=== PATIENT | male | born 1985 | race Caucasian/White ===

== ENCOUNTER 2018-09-18 12:22 | Emergency (ER) | payer MEDICAID, SELFPAY ==
[2018-09-18 12:23] VITALS: BP 164/98; PULSE 101; RESP 18; TEMP 37.4; O2SAT 98; BMI 29.0
[2018-09-18 12:25] VITALS: BP 164/98; PULSE 102; RESP 18; TEMP 37.4; O2SAT 99; BMI 29.0
[2018-09-18] MEDS: Neomycin Sulfate/Polymyxin/Hc Susp 10 ML Bottle 4 DRP OTIC (12:43)
[2018-09-18] MEDS: HYDROcodone Bitartrate/Apap 5/325 Tablet PO (12:43)
[2018-09-18] MEDS: Diphth,Pertuss(Acell),Tet Vac 0.5 ML Vial IM (12:43)
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
[2018-09-18 13:34] VITALS: PULSE 100; RESP 18
== END 2018-09-18 13:35 | disposition home or self-care (01) ==
LOC: ED 13:34
PROVIDERS: Emergency Provider Emergency Medicine
DX: S00.83XA Contusion of other part of head, initial encounter (principal); H60.93 Unspecified otitis externa, bilateral; F17.200 Nicotine dependence, unspecified, uncomplicated; Z23 Encounter for immunization; Y04.2XXA Assault by strike against or bumped into by another person, initial encounter; Y93.89 Activity, other specified; Y92.89 Other specified places as the place of occurrence of the external cause; Y99.8 Other external cause status
CPT/HCPCS: 70150; 90715; 99283

== ENCOUNTER 2018-12-03 07:04 | Emergency (ER) | payer MEDICAID, SELFPAY ==
[2018-12-03 04:40] VITALS: BP 169/92; PULSE 104; RESP 22; TEMP 37.4; O2SAT 97; BMI 32.8
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
[2018-12-03] MEDS: Ketorolac 30 MG/ML Syringe IV (05:07)
[2018-12-03 05:25] LABS: Absolute Lymphocyte Count 1.27 X10^3/ul (0.83-4.51); Absolute Neutrophil Count 3.7 X10^3/uL (2.0-7.7); Basophil# 0.08 X10^3/uL; Basophil% 1.2 % (0-1); Eosinophils% 4.5 % (0-5); Hematocrit 47.4 % (40-54); Hemoglobin 16.3 g/dl (13.0-16.5); Lymphocyte # 1.27 X10^3/ul (4.0); Lymphocyte % 19.2 % (19-41); Mean Corp Hgb Conc 34.4 g/gl (32-36); Mean Corpuscular Hgb 31.4 pg (27.0-32.0); Mean Corpuscular Volume 91.3 fL (80-94); Mean Platelet Vol. 9.6 fl (6.2-12.0); Monocyte# 1.24 X10^3/uL; Monocyte% 18.7 % (0-10); Neutrophil # 3.68 X10^3/uL (2.7-7.7); Neutrophil % 55.5 % (47-70); POSITIVE COUNT NO; POSITIVE DIFFERENTIAL NO; POSITIVE MORPHOLOGY NO; Platelet Count 189 K/mm3 (150-450); RBC Distribution Width SD 43.1 fl (35.1-43.9); Red Blood Count 5.19 M/mm3 (4.6-6.2); White Blood Count 6.6 K/mm3 (4.4-11.0)
[2018-12-03 05:38] LABS: Anion Gap 7 (5-15); BUN 11 mg/dL (7-18); BUN/Creat Ratio 9.7 RATIO (10-20); Calcium,Total 8.8 mg/dL (8.5-10.1); Chloride 102 mmol/L (98-107); Creatinine, Serum 1.13 mg/dL (0.70-1.30); EST Glomerular Filtration Rate 79 mL/min (>60); Est Glom Filt Rate - Afr Amer 96 mL/min (>60); Estimated Creatinine Clearance 105.08 ml/min; Glucose 114 mg/dL (74-106); Potassium 4.3 mmol/L (3.5-5.1); Sodium Level 138 mmol/L (136-145)
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
--- NOTE | 2018-12-03 06:27 | ED.RN ---
PT removed his own IV.
--- NOTE | 2018-12-03 06:32 | ED.VISSUMM ---
- ER Visit Summary Date of Service: 12/03/18 Chief Complaint: Right buttock abscess History of Present Illness: The patient is a 33 M with a history of long-standing abscess along the right buttock and toward the scrotum. He states this is been present for 2 to 3 years. However in the last couple of days this is worsened. He is developed a fever with temperature 101 and also reports nausea and vomiting for the last couple of days. He complains of lower abdominal pain. This has previously undergone incision and drainage. On one visit he underwent a CT which showed a perirectal abscess. Surgery was consulted who advised that it be drained in the emergency department and then follow-up with surgery for further surgical intervention. The patient states he never followed up with surgery. He presents from correction. Physical Examination: Temperature 99.4, heart rate 104, respiratory rate 22 Moist mucous membranes Heart regular tachycardia Lungs are clear Abdomen soft with some lower abdominal tenderness he has induration along the right buttock along the perineum extending towards the scrotum there is a 6 scar along the buttock with no drainage there is no open wound on the perineum near the base of the scrotum with spontaneous bloody drainage there is associated erythema consistent with some cellulitis. Test Results: CBC and BMP unremarkable. Emergency Department Course and Treatment: Patient was given IV Zosyn. He was given Toradol for pain. He went for a CT of the abdomen and pelvis with IV contrast to further evaluate this. Patient was released from correction. After this he pulled out his IV and eloped from the emergency department. I did not have a chance to discuss risks and benefits with him or have him sign out AGAINST MEDICAL ADVICE. Treatment Plan: [] Disposition: Eloped Impression: Perineum abscess This note was generated with [employer] dictation software. It may contain incorrect words, spelling, and punctuation that were not noted in review of the chart prior to signing ED Disposition - Plan for ED Patient: Referrals: Care Physician,No Primary [Primary Care Provider] -
== END 2018-12-03 08:00 | disposition left against medical advice (07) ==
PROVIDERS: Emergency Provider Emergency Medicine
DX: L02.215 Cutaneous abscess of perineum (principal)
CPT/HCPCS: 74177; 80048; 85025; 87070; 87205; 99282; J7050; Q9967; A4216

== ENCOUNTER 2019-01-30 06:30 | Emergency (ER) | payer MEDICAID, SELFPAY ==
[2019-01-30 06:31] VITALS: BP 142/82; PULSE 91; RESP 15; TEMP 36.4; O2SAT 97; BMI 33.2
--- NOTE | 2019-01-30 07:03 | ED.VIS.GEN ---
History of Present Illness Chief Complaint: Ear Problem Detail of Chief Complaint: With drainage Informant: Patient Onset: Weeks - Onset 1 week ago Context: Sudden Onset Timing: Continuous Quality: Pain Location: Left ear Current Severity: Mild Maximum Severity: Moderate Worsened by: Touch Relieved by: Nothing Associated Symptoms: Drainage from his left ear Narrative: Patient is a 33-year-old male presents with atraumatic left ear pain. He denies using Q-tip. He denies swimming. He complains of pain and drainage. He denies fever, chills or night sweats. He denies rhinorrhea, congestion or postnasal drainage. He denies sore throat. He denies headache. He denies rash. He denies neck pain or stiffness. He denies cough or shortness of breath. Prior similar symptoms: No Recent Illness/Hospitalization: No - Past Medical History (1) No significant past medical history Status: Acute Past Medical History - Allergies and Home Meds Allergies/Adverse Reactions: Allergies sulfamethoxazole [From Bactrim] Allergy (Verified 01/30/19 06:35) Hives trimethoprim [From Bactrim] Allergy (Verified 01/30/19 06:35) Hives Primary Care Physician: Care Physician,No Primary [Primary Care Provider] - Surgical History: no surgical history Lives: Alone Smoking Status: Current every day smoker Alcohol: Rare Drugs: None Review of Systems General: Denies: Chills, Fever, Malaise, Subjective, Sweats Eyes: Denies: Visual changes - bilaterally, Blurred Vision - bilaterally, Diplopia ENT: Reports: Left ear pain. Denies: Right ear pain, Rhinorrhea, Sore throat Cardiovascular: Denies: Chest pain, Palpitations Respiratory: Denies: Dyspnea, Cough, Dyspnea on exertion Gastrointestinal: Denies: Nausea, Vomiting Musculoskeletal: Denies: Myalgias, Arthralgias, Neck pain, Back pain Skin: Denies: Rash, Wounds Neurological: Denies: Headache, Weakness Allergy: Denies: Uticaria, Swelling of the mouth, Swelling of the tongue Physical Exam Vital Signs/Narrative: Vital Signs Temp Pulse Resp BP Pulse Ox 01/30/19 06:31 97.6 F L 91 15 142/82 H 97 Inital Vital Signs reviewed: Yes General: Well nourished, Well developed, No Acute Distress Head: Normocephalic, Atraumatic Eyes: Perrl, EOMI. Negative for: Pale conjunctiva, Scleral icterus ENT: Moist mucous membranes, No rhinorrhea. Negative for: TM's clear - Difficult seeing the left TM. There is pain to palpation of the tragus. There is discomfort plan left auricle. The left external auditory canal is narrowed with drainage noted. Neck: Supple, Nontender, No lymphadenopathy, No JVD Cardiovascular: Regular rate, Regular rhythm, No murmurs, Normal S1, Normal S2 Respiratory: No distress, CTA bilaterally, Chest nontender Skin: Normal color, No rash, No Trauma, - - No lesions noted external auditory canal to suggest [place] Vang syndrome.. Negative for: Cyanosis, Diaphoresis, Jaundice Neurological: Alert, Oriented x3, Cranial nerves II-XII grossly intact, Normal Strength, Normal Sensation Psychological: Normal affect, Normal Mood Diagnostic/Tx/Re-eval - Medical Decision Making Patient has history and physical exam consistent with otitis externa. A portion of the TM was visualized. It appears normal. This would suggest that the TM has not ruptured and there is no evidence of otitis media. Plan is to place a wick and have removed in 4 to 5 days. We will have Cortisporin otic suspension instilled in the left ear and bile will be dispensed. ED Disposition - Plan for ED Patient: Disposition: Home or Assisted Living Diagnosis: Acute otitis externa of left ear Instructions: EXTERNAL EAR INFECTION (Adult) Referrals: Care Physician,No Primary [Primary Care Provider] - Karishma Almanza DO [STAFF PHYSICIAN] - 3-5 Days Additional Instructions: Make an appointment see Dr. Mares in 4 to 5 days to have wick removed. Instill 4 to 5 drops of otic suspension left ear 4 times a day.
[2019-01-30] MEDS: Neomycin Sulfate/Polymyxin/Hc Susp 10 ML Bottle 4 DRP OTIC (07:32)
== END 2019-01-30 07:37 | disposition home or self-care (01) ==
LOC: ED 07:10
PROVIDERS: Emergency Provider Emergency Medicine
DX: H60.502 Unspecified acute noninfective otitis externa, left ear (principal); F17.200 Nicotine dependence, unspecified, uncomplicated
CPT/HCPCS: 99282

== ENCOUNTER 2019-05-25 18:41 | Emergency (ER) | payer SELFPAY ==
[2019-05-25 18:42] VITALS: BP 163/104; PULSE 106; RESP 18; TEMP 37.2; O2SAT 99; BMI 29.0
[2019-05-25 18:51] VITALS: TEMP 37.2
--- NOTE | 2019-05-25 19:16 | PCM.HP.STD ---
History of Present Illness The patient is a 34 year old M [] Past Medical History Allergies sulfamethoxazole [From Bactrim] Allergy (Verified 05/25/19 18:50) Hives trimethoprim [From Bactrim] Allergy (Verified 05/25/19 18:50) Hives Home Medications: Ambulatory Orders Medication Instructions Recorded NK 12/03/18 Surgical History: no surgical history Smoking Status: Current every day smoker - Physical Exam Vitals/I&O's: Vital Signs Temp Pulse Resp BP Pulse Ox 98.9 F 106 H 18 163/104 H 99 05/25/19 18:51 05/25/19 18:42 05/25/19 18:42 05/25/19 18:42 05/25/19 18:42 Weight: 99.79 kg Body Mass Index (BMI) 29.0 Assessment/Plan All Active Problems No significant past medical history (Acute) Abscess and cellulitis (Acute)
--- NOTE | 2019-05-25 19:57 | ED.DCSUM_ITS ---
- ER Visit Summary Date of Service: 05/25/19 Chief Complaint: Dental pain History of Present Illness: The patient is a 34 M presents with dental pain that has been getting worse over the past 2 days. Patient describes the pain as aching. Patient states the pain is over the right lower jaw. Patient does not have a dentist. Patient admits to subjective fevers. Patient also admits to swelling of his jaw and face. Patient also admits to hot and cold sensitivity. Physical Examination: Vital signs are stable. Patient is afebrile here. Patient is in no acute distress. Oral mucosa is pink and moist. There are dental caries noted over the right lower first and second molars. There is no abscess formation. There is some mild gingival edema. There is no fluctuance. There is no sublingual edema or erythema. Neck is supple. Trachea is midline to there is no JVD or lymphadenopathy. Emergency Department Course and Treatment: Patient was given a prescription for Pen-Vee K. Patient was instructed to continue Tylenol and ibuprofen as needed for pain. Patient was instructed to follow-up with a dentist in 3 to 5 days. Patient understood and was agreeable with the plan. All questions were answered. Disposition: Discharge home Impression: Infected dental caries This note was generated with [employer] dictation software. It may contain incorrect words, spelling, and punctuation that were not noted in review of the chart prior to signing ED Disposition - Plan for ED Patient: Disposition: Home or Assisted Living Diagnosis: Infected dental caries Instructions: Dental Cavity Prescriptions: Penicillin V Potassium 500 mg PO 4X/DAY #40 tab Prescription Printed Referrals: Care Physician,No Primary [Primary Care Provider] - Dentist,Your [STAFF PHYSICIAN] - As soon as possible
[2019-05-25 20:09] VITALS: TEMP 37.1
== END 2019-05-25 20:10 | disposition home or self-care (01) ==
PROVIDERS: Emergency Provider Emergency Medicine
DX: K02.9 Dental caries, unspecified (principal); K04.7 Periapical abscess without sinus; F12.90 Cannabis use, unspecified, uncomplicated; Z72.0 Tobacco use
CPT/HCPCS: 99282

== ENCOUNTER 2020-09-12 21:40 | Emergency (ER) | payer SELFPAY ==
[2020-09-12 21:41] VITALS: BP 122/73; PULSE 92; RESP 17; TEMP 37; O2SAT 96; BMI 31.6
--- NOTE | 2020-09-12 22:53 | ED.VIS.GEN ---
History of Present Illness Chief Complaint: Wound Informant: Patient Narrative: 35-year-old male presents with concern for multiple wounds covering his body. States that 2 weeks ago he was trimming bushes out in front of his home when he got small pinpricks on his skin. States that he scratched them open after they become little areas of infection. States that they have worsened since that time. Denies any fever or chills. Does not use IV drugs. Past Medical History - Allergies and Home Meds Allergies/Adverse Reactions: Allergies sulfamethoxazole [From Bactrim] Allergy (Verified 09/12/20 21:43) Hives trimethoprim [From Bactrim] Allergy (Verified 09/12/20 21:43) Hives Primary Care Physician: Care Physician,No Primary [Primary Care Provider] - Prior records reviewed: Yes Past Medical History: None Surgical History: no surgical history Lives: Alone Smoking Status: Current every day smoker Alcohol: None Drugs: None Review of Systems General: Denies: Chills, Fever, Sweats Eyes: Denies: Visual changes - bilaterally, Diplopia ENT: Denies: Rhinorrhea, Sore throat Cardiovascular: Denies: Chest pain, Palpitations Respiratory: Denies: Dyspnea, Cough, Dyspnea on exertion Gastrointestinal: Denies: Abdominal pain, Nausea, Vomiting, Diarrhea, Melena, Hematochezia Genitourinary: Denies: Dysuria, Hematuria, Frequency Musculoskeletal: Denies: Back pain, Extremity Pain Skin: Reports: Wounds. Denies: Rash Neurological: Denies: Headache, Weakness, Numbness Physical Exam Vital Signs/Narrative: Vital Signs Temp Pulse Resp BP Pulse Ox 09/12/20 21:41 98.6 F 92 17 122/73 H 96 Inital Vital Signs reviewed: Yes General: Well nourished, Well developed, No Acute Distress Head: Normocephalic, Atraumatic Eyes: Perrl, EOMI ENT: Moist mucous membranes, No rhinorrhea Neck: Supple, Nontender Cardiovascular: Regular rate, Regular rhythm, No murmurs Respiratory: No distress, CTA bilaterally, Chest nontender Abdomen: Soft, Nontender, Nondistended, Normal bowel sounds Back: Nontender, Normal Inspection Extremities: Nontender, No edema Skin: Normal color, - - Patient has evidence of multiple ulcerated lesions to his bilateral upper and lower extremities. Small areas of surrounding cellulitis. Neurological: Alert, Oriented x3, Cranial nerves II-XII grossly intact, Normal Strength, Normal Sensation Psychological: Normal affect, Normal Mood Diagnostic/Tx/Re-eval - Medical Decision Making Patient appears well and nontoxic. Vital signs within normal limits. Patient has these ulcerated wounds with some having surrounding cellulitis. There is some concern for Sporothrix schenckii infection. Patient will be covered with antifungal for multiple weeks as well as doxycycline. Patient will be given infectious disease to follow-up with as an outpatient. Stable at time of discharge. Impression: 1. Multiple skin lesions 2. Cellulitis ED Disposition - Plan for ED Patient: Disposition: Home or Assisted Living Instructions: ED Cellulitis, Wound Care Prescriptions: Doxycycline Hyclate 100 mg PO BID #14 capsule Prescription Printed Itraconazole 100 mg PO DAILY #60 capsule Prescription Printed Referrals: Adebayo Bae MD [STAFF PHYSICIAN] - 2 Days Lucien Rodgers MD [STAFF PHYSICIAN] - 5-7 Days
[2020-09-12] MEDS: Ceftriaxone 1 GM/50 ML BAG IV (23:29)
[2020-09-12 23:31] LABS: Absolute Neutrophil Count 5.2 X10^3/uL (2.0-7.7); Basophil# 0.07 X10^3/uL; Basophil% 0.8 % (0-1); Eosinophil# 0.24 X10^3/uL; Eosinophils% 2.8 % (0-5); Hematocrit 41.6 % (40-54); Hemoglobin 14.3 g/dL (13.0-16.5); Lymphocyte % 25.3 % (19-41); Mean Corp Hgb Conc 34.4 g/dL (32-36); Mean Corpuscular Hgb 31.9 pg (27.0-32.0); Mean Corpuscular Volume 92.9 fL (80-94); Mean Platelet Vol. 8.7 fl (6.2-12.0); Monocyte# 0.92 X10^3/uL; Monocyte% 10.6 % (0-10); NRBC Flagged by Analyzer 0 % (0-5); Neutrophil # 5.16 X10^3/uL (2.7-7.7); Neutrophil % 59.3 % (47-70); Platelet Count 277 K/mm3 (150-450); RBC Distribution Width CV 12.1 % (11.6-14.6); RBC Distribution Width SD 41.2 fl (35.1-43.9); Red Blood Count 4.48 M/mm3 (4.6-6.2); White Blood Count 8.7 K/mm3 (4.4-11.0)
[2020-09-12 23:40] LABS: Anion Gap 4 (5-15); BUN 15 mg/dL (7-18); BUN/Creat Ratio 15.1 RATIO (10-20); Calcium,Total 8.6 mg/dL (8.5-10.1); Chloride 105 mmol/L (98-107); Creatinine, Serum 0.99 mg/dL (0.70-1.30); EST Glomerular Filtration Rate 91 mL/min (>60); Est Glom Filt Rate - Afr Amer 110 mL/min (>60); Glucose 105 mg/dL (74-106); Potassium 4.1 mmol/L (3.5-5.1); Sodium Level 139 mmol/L (136-145)
[2020-09-13 00:20] VITALS: BP 121/74; PULSE 90; RESP 14; O2SAT 98
[2020-09-13 08:07] LABS: HIV - WCH Non-Reactive (Nonreactive); Syphilis Antibodies Non-reactive
== END 2020-09-13 00:23 | disposition home or self-care (01) ==
PROVIDERS: Emergency Provider Emergency Medicine
DX: L03.90 Cellulitis, unspecified (principal); F17.200 Nicotine dependence, unspecified, uncomplicated
CPT/HCPCS: 80048; 85025; 86703; 86780; 96365; 99285; J7050

== ENCOUNTER 2021-06-29 21:42 | Emergency (ER) | payer SELFPAY ==
[2021-06-29 21:43] VITALS: BP 155/92; PULSE 103; RESP 16; TEMP 36.2; O2SAT 97; BMI 37.3
[2021-06-29 21:44] VITALS: BP 155/92; PULSE 103; RESP 16; TEMP 36.2; O2SAT 97
--- NOTE | 2021-06-29 22:04 | EX.ED.DYSGE1 ---
HPI History of Present Illness Chief Complaint: Abscess Narrative Narrative: Patient is a 36-year-old male who states he used a [id number] about 5 to 7 days ago. He states he was allergic to it and got a lot of inflammation and redness in his axilla region. He states this is begun to down but he has noticed large swellings in both armpit area that are soft and painful in nature. He denies any drainage from the sites or history of immunosuppression fevers or chills. He states that he believes he has an abscess in each axilla and presents today because he feels they may need opened and drained. PFSH PFSH Home Medications clindamycin HCl [Cleocin HCl] 300 mg PO Q6H #40 cap 06/29/21 [Rx Last Taken Unknown] oxycodone-acetaminophen [Percocet] 1 tab PO Q6H PRN 3 Days #12 tab 06/29/21 [Rx Last Taken Unknown] Allergy/AdvReac Type Severity Reaction Status Date / Time sulfamethoxazole Allergy Hives Verified 09/12/20 21:43 [From Bactrim] trimethoprim [From Bactrim] Allergy Hives Verified 09/12/20 21:43 Social History Smoking Status: Current every day smoker tobacco type: cigarettes ROS ROS ED Constitutional Constitutional ED: Denies chills or fever(s) ENT ENT ED: Denies sore throat Cardiovascular Cardiovascular: Denies chest pain Respiratory/Chest Respiratory/Chest: Denies cough or dyspnea Gastrointestinal Gastrointestinal: Denies abdominal pain, diarrhea, nausea or vomiting Genitourinary Genitourinary ED: Denies dysuria Musculoskeletal Musculoskeletal: Denies myalgias Integumentary Reports abscess; Denies rash Neurologic Neurologic: Denies headache(s) Hematologic/Lymphatic Hematologic/Lymphatic: Denies easy bleeding or easy bruising EXAM Physical Exam Const Vital Signs: 06/29/21 21:43 06/29/21 21:44 Temperature 97.2 F L 97.2 F L Temperature Source Temporal Temporal Pulse Rate 103 H 103 H Respiratory Rate 16 16 Blood Pressure 155/92 H 155/92 H Blood Pressure Mean 113 113 Pulse Ox 97 97 Oxygen Delivery Method Room Air Room Air Positive well nourished and well developed General Appearance ED: well developed Eyes PERRL and EOMs intact bilaterally Neck supple Resp normal respiratory effort and clear to auscultation bilaterally Cardio regular rate and regular rhythm Extremity normal to inspection Neuro oriented x3 and CN's II-XII intact bilaterally Sensorium / Orientation: alert Motor Exam: strength 5/5 throughout Psych mental status grossly normal Skin Skin Narrative: Patient has blanchable erythema in the bilateral axillas consistent with his report of recent allergic reaction. However there is also a 2 x 4 area of induration in the left axilla as well as a 1 x 3 cm area of fluctuance in the right axilla consistent with abscess. There is no active drainage noted or lymphangitic streaking. MDM MDM MDM Narrative Medical decision making narrative: Patient presented to the ER afebrile. His exam is consistent with bilateral axilla abscesses. He does not have signs of systemic infection and he is not immunosuppressed so I felt no need for imaging or laboratory studies. Patient had the abscess is incised and drained as documented below. Following this we placed on antibiotics and pain medication and is otherwise safe for discharge Patient had both axilla cleaned with chlorhexidine. The axilla was numbed in local fashion using 2% lidocaine with epinephrine. A total of 16 mL was used for anesthesia with 8 mL injected into each axilla. A #11 blade was used to make a 1.5 cm incision over the area of fluctuance bilaterally. A large amount of purulent material was expressed. Loculations were dissected with a needle reynoso. The abscesses were copiously irrigated with normal saline. Then quarter-inch iodoform gauze was packed into both wounds. Patient tolerated procedure well without complication Discharge Plan Triage Chief Complaint: Abscess ED Provider: John Small Dx/Rx/DC Orders Clinical Impression: Axillary abscess Instructions: ED Abscess Incision And Drainage Prescriptions: New clindamycin HCl [Cleocin HCl] 300 mg capsule 300 mg PO Q6H Qty: 40 RF: 0 oxycodone-acetaminophen [Percocet] 5-325 mg tablet 1 tab PO Q6H PRN (Reason: pain) 3 Days Qty: 12 RF: 0 Primary Care Provider: Care Physician,No Primary Referrals: Troy Galindo MD [STAFF PHYSICIAN] - 1 Week if not improving Care Physician,No Primary [Primary Care Provider] - Activity Restrictions/Additional Instructions: Please remove your packing in 48 to 72 hours and return to the ER should you have any further concerns Disposition Disposition: Home, Self Care
[2021-06-29] MEDS: Ondansetron ODT 4 MG Tablet PO (22:27)
[2021-06-29] MEDS: Clindamycin HCl 150 MG Capsule 300 MG PO (22:27)
[2021-06-29] MEDS: Lidocaine 2% /Epi 1:100 (20ml) 20 ML VIAL INFILT (22:27)
[2021-06-29] MEDS: morphine 10 MG/ML Syringe 8 MG IM (22:28)
== END 2021-06-29 23:57 | disposition home or self-care (01) ==
PROVIDERS: Emergency Provider Emergency Medicine; Visit Provider Emergency Medicine
DX: L02.419 Cutaneous abscess of limb, unspecified (principal); F17.210 Nicotine dependence, cigarettes, uncomplicated
CPT/HCPCS: 10061; 96372; 99282

== ENCOUNTER 2021-08-14 08:19 | Inpatient (IN) | payer MEDICAID, SELFPAY ==
[2021-08-14] VITALS (55 sets, daily range): BP systolic 63–185; BP diastolic 39–128; PULSE 72–138; RESP 14–37; TEMP 35.9–39.9; O2SAT 43–97; BMI 37.0; BMI 36.9
[2021-08-14] MEDS: Etomidate 20 MG/10 ML Vial IV (08:26)
[2021-08-14] MEDS: Rocuronium Bromide 50 MG/5 ML Vial 40 MG IV (08:26)
--- NOTE | 2021-08-14 08:31 | EKG12_ITS ---
Test Reason : CODE Blood Pressure : / mmHG Vent. Rate : 111 BPM Atrial Rate : 111 BPM P-R Int : 190 ms QRS Dur : 084 ms QT Int : 316 ms P-R-T Axes : 074 054 029 degrees QTc Int : 429 ms Sinus tachycardia Septal infarct , age undetermined Abnormal ECG When compared with ECG of 02-DEC-2020 09:35, Vent. rate has increased BY 41 BPM Septal infarct is now Present Non-specific change in ST segment in Inferior leads Confirmed by SHITAL BREEN, CHANDLER ([id number]), editor publications PATY MONREAL ([id number]) on 08/18/2021 10:42:34 AM Referred By: MADELYN Confirmed By:CHANDLER ISAACS MD
--- NOTE | 2021-08-14 08:31 | RAD_ITS ---
STUDY: X-RAY CHEST REASON FOR EXAM: Male, 36 years old. Aspiration TECHNIQUE: Single AP portable view of the chest. COMPARISON: None. FINDINGS: An endotracheal tube is in situ. The tip is at 3.4 cm proximal to the lisbet. An orogastric tube is seen with tip below the left hemidiaphragm. EKG lines are seen. Bilateral airspace disease worse in the left lung. There is no demonstrated pleural abnormality. Normal size heart. Normal mediastinum and minal. Normal visualized pulmonary arteries. Normal visualized aortic arch and descending thoracic aorta. Normal visualized thoracic spine. Normal visualized ribs, clavicles, and shoulders. There is no demonstrated abnormality of the visualized soft tissue structures of the upper abdomen. RAD/Chest 1 View (Portable) IMPRESSION: The support tubes are in good position. Bilateral airspace disease worse in the left hemithorax. Electronically Signed: Gm Robbins MD at 9:06 EDT ,
--- NOTE | 2021-08-14 08:32 | RAD_ITS ---
STUDY: X-RAY - ABDOMEN/PELVIS REASON FOR EXAM: Male, 36 years old. og tube TECHNIQUE: Single AP view of the abdomen / pelvis. COMPARISON: None. FINDINGS: The tip of the orogastric tube is in the fundal portion of the stomach. Airspace disease seen in both lower lobes. RAD/Abdomen Single View (Portable) IMPRESSION: The tip of the orogastric tube is in the fundal portion of the stomach. Electronically Signed: Gm Robbins MD at 9:05 EDT ,
--- NOTE | 2021-08-14 08:33 | CT_ITS ---
STUDY: CT BRAIN WITHOUT CONTRAST REASON FOR EXAM: Male, 36 years old. Altered mental status. Overdose. RADIATION DOSAGE (If Supplied By Facility): CTDIvol = ( 34.83 ) mGy, DLP = ( 1340.67 ) mGycm TECHNIQUE: Transaxial CT imaging of the brain was performed without administration of intravenous contrast material. Individualized dose optimization techniques were used for this CT. COMPARISON: Comparison is made with prior study dated 10/19/2013. FINDINGS: Normal soft tissue structures. Normal calvarium. Lack of gyral markings of both cerebral hemispheres with evidence of diffuse bilateral decreased attenuation in the jones matter as well as white matter. There is decreased size of the lateral ventricles as well as the third ventricle. Findings are suggestive of a anoxic brain injury. Normal white matter tracts of the cerebral hemispheres. Normal basal ganglia and thalami. Normal brainstem. Normal cerebellum. There is no intracranial hemorrhage. There are no findings of an acute ischemic infarction. Normal visualized paranasal sinuses. CT/Brain/Head without Contrast IMPRESSION: Findings suggestive of anoxic brain injury. Electronically Signed: Gm Robbins MD at 10:53 EDT ,
[2021-08-14 08:57] LABS: Bacteria 0 SEEN /hpf (None Seen); Mucous, Urine 0 SEEN /hpf (<or=2+); Squamous Epithelial Cells - UA 0 SEEN /hpf (0-5); White Blood Cells 0 SEEN /hpf (0-5)
[2021-08-14 08:58] LABS: Color, Urine Yellow (Yellow); Glucose, Dipstick Normal (Normal); Ketone-Dipstick Negative (Negative); Leukocyte Esterase-Dipstick Negative /ul (Negative); Nitrite-Dipstick Negative (Negative); Occult Blood-Urine 250 /ul (Negative); Protein-Dipstick 100 mg/dl (Negative); Specific Gravity, Urine 1.015 (1.002-1.030); Urine Bilirubin Dipstick Negative (Negative); Urine Clarity Sl. Cloudy (Clear); Urine Urobilinogen Normal (Normal)
[2021-08-14 09:05] LABS: Red Blood Cells-Urine 5-10 SEEN /hpf (0-5)
[2021-08-14 09:12] LABS: Amphetamine Urine VISTA POSITIVE (<1000 ng/mL); Barbiturate Urine VISTA NEGATIVE (< 200 ng/mL); Benzodiazepine Urine VISTA NEGATIVE (< 200 ng/mL); Cocaine Urine VISTA NEGATIVE (< 300 ng/mL); Ecstacy Urine VISTA NEGATIVE (< 500 ng/mL); Methadone Urine VISTA NEGATIVE (< 300 ng/mL); PCP Urine VISTA NEGATIVE (< 25 ng/mL); THC Urine VISTA NEGATIVE (< 50 ng/mL); Vista UDS pH Range 6
[2021-08-14] MEDS: 0.9% Normal Saline 1,000 ML 999 ML IV (09:13)
[2021-08-14] MEDS: Propofol 10MG/Ml 1,000 MG/100 ML Bottle 7.4 MG CONT INF (09:20)
[2021-08-14 09:25] LABS: Absolute Lymphocyte Count 1.04 X10^3/uL (0.83-4.51); Absolute Neutrophil Count 8.5 X10^3/uL (2.0-7.7); Basophil# 0.11 X10^3/uL; Eosinophil# 0.03 X10^3/uL; Eosinophils% 0.3 % (0-5); Lymphocyte # 1.04 X10^3/ul (0.83-4.51); Lymphocyte % 9.7 % (19-41); Mean Corp Hgb Conc 33.9 g/dL (32-36); Mean Corpuscular Hgb 33.4 pg (27.0-32.0); Mean Corpuscular Volume 98.5 fL (80-94); Mean Platelet Vol. 8.7 fl (6.2-12.0); Monocyte# 0.73 X10^3/uL; Monocyte% 6.8 % (0-10); NRBC Flagged by Analyzer 0.2 % (0-5); Neutrophil % 79.3 % (47-70); Platelet Count 273 K/mm3 (150-450); RBC Distribution Width CV 12.1 % (11.6-14.6); RBC Distribution Width SD 43.8 fl (35.1-43.9); Red Blood Count 5.48 M/mm3 (4.6-6.2); White Blood Count 10.7 K/mm3 (4.4-11.0)
[2021-08-14 09:32] LABS: Differential Indicated SCAN CRITERIA MET; Hemoglobin 18.3 g/dL (13.0-16.5)
--- NOTE | 2021-08-14 09:49 | NURSING ---
dr and cps aware of o2 sat 79%
--- NOTE | 2021-08-14 09:53 | ED.RN ---
per dr owens, dr qureshi on way to see pt. wait on ct until seen by dr qureshi
[2021-08-14 09:56] LABS: Lactic Acid 3.9 mmol/L (0.4-1.9)
--- NOTE | 2021-08-14 10:20 | ED.RN ---
pt to ct via bed 1040 pt to icu
[2021-08-14 10:29] LABS: Base Excess -9 mmol/L (-2 to +2); Bicarbonate 22.7 mmol/L (22-26); PO2 66 mmHG (75-100); SITE R Radial; SO2 78 % (95-99); Total Carbon Dioxide 26 mmol/L; pH 6.99 (7.35-7.45)
--- NOTE | 2021-08-14 10:31 | CPS ---
Critical ABG Results handed to at [id number]. Deonte DIRECTOR DANCE
--- NOTE | 2021-08-14 10:31 | CM.ED ---
Social Work Emergency Department Responded to Ramila Bailey in the Emergency Department. Talked with staff and received update. Patient's mother Angela in the ED, and later joined by Angela's cousin. This telegraphic typewriter operator chief sat with Angela, provided emotional support, answered questions and updated Angela as able. Angela shared that patient has a history of heroin addiction and reportedly clean since October 2020. Angela reports she confronted the patient last evening about concerns for drug use and patient reportedly denied use. Angela reports patient's sister heard patient gurgling in the bedroom this morning, which is when the family found the patient unresponsive and called 911. Angela denies patient has any chronic health conditions. No current substance or mental health counseling or treatment that Angela is aware of. Angela denies awareness of patient having any type of advanced directives. Patient is single, not . Patient has 2 children, but both are minors. Let Angela know that any decision making that will be needed for health care will fall to the Angela and patient's father who also lives in the home. Handoff report to ICU delinquency prevention social worker. Social work remains available as needed. -SABI Michaels, REAL ESTATE ASSISTANT
--- NOTE | 2021-08-14 10:47 | EDS_ITS ---
HPI History of Present Illness Chief Complaint: Unresponsive Narrative Narrative: 36-year-old male presenting with altered mental status. Patient last seen well at about 1 to 1:30 AM. His mother reports that she was arguing with him saying that he was doing drugs. She states he was adamant he was not. He was acting strangely to her. She states that this morning he was found gurgling in his room. Unknown downtime. Patient received 2 of Narcan at home and 7 by EMS. There is been no return to baseline. Patient was frothing at the mouth and jaw clenched when he arrived. PFSH PFSH Home Medications clindamycin HCl [Cleocin HCl] 300 mg PO Q6H #40 cap 06/29/21 [Rx Last Taken Unknown] oxycodone-acetaminophen [Percocet] 1 tab PO Q6H PRN 3 Days #12 tab 06/29/21 [Rx Last Taken Unknown] Allergy/AdvReac Type Severity Reaction Status Date / Time sulfamethoxazole Allergy Hives Verified 09/12/20 21:43 [From Bactrim] trimethoprim [From Bactrim] Allergy Hives Verified 09/12/20 21:43 Social History Smoking Status: Current every day smoker tobacco type: cigarettes ROS ROS ED Review of Systems ROS Unobtainable: due to encephalopathy, due to endotracheal tube and due to mental condition EXAM Physical Exam Const Vital Signs: 08/14/21 08:22 08/14/21 08:36 08/14/21 08:44 Temperature 96.7 F L Temperature Source Temporal Pulse Rate 103 H 114 H Respiratory Rate 14 Respiratory Effort Mechanically Ventilated Blood Pressure 153/93 H Blood Pressure Mean 113 Pulse Ox 92 Oxygen Delivery Method Ambu-Bag Mechanical Ventilator Fraction of Inspired Oxygen (FIO2) 100 08/14/21 08:57 08/14/21 09:07 08/14/21 09:08 Temperature 96.7 F L 96.7 F L Temperature Source Temporal Temporal Pulse Rate 113 H Respiratory Rate 20 H Respiratory Effort Blood Pressure 153/93 H 185/113 H Blood Pressure Mean 137 Pulse Ox 96 Oxygen Delivery Method Ambu-Bag Mechanical Ventilator Mechanical Ventilator Fraction of Inspired Oxygen (FIO2) 08/14/21 09:33 Temperature Temperature Source Pulse Rate 116 H Respiratory Rate 24 H Respiratory Effort Blood Pressure 178/128 H Blood Pressure Mean 144 Pulse Ox 83 Oxygen Delivery Method Mechanical Ventilator Fraction of Inspired Oxygen (FIO2) Positive obese and unkempt General Appearance ED: unkempt; Negative for pallor Nutritional Appearance: obese HEENT HEENT Narrative: Frothing at the mouth. Negative for trauma Eyes Eyes Narrative: Eyes rolling backwards Chest Wall inspection of chest normal Resp clear to auscultation bilaterally Cardio Rate: tachycardic GI normal to inspection, nondistended, normoactive bowel sounds Neuro Sensorium / Orientation: stuporous Psych Appearance: unkempt Skin no rashes or lesions noted General Skin Exam: Negative for jaundice or pallor MDM MDM MDM Narrative Medical decision making narrative: 36-year-old male presenting with altered mental status. Initial concern is that the patient aspirated and has anoxic brain injury due to the level of downtime presumed. Narcan was not helping the patient. Determined immediately patient needed to be intubated. After receiving etomidate and rocuronium the patient began to vomit profusely. It is coming out of his nose and his oral airway. This lasted for about 45 sec. and he was suctioned. After this the patient lost his pulse. ACS was begun. After 1 round of chest compressions his pulse came back. ET tube was placed by ED physician on first pass using glide scope. Good color change and bilateral breath sounds post intubation. Patient was given vancomycin and Zosyn for broad-spectrum coverage. IV fluids were ordered at 30 cc/kg. Patient started on propofol drip. The patient was hypertensive and this actually did bring his blood pressure down. Last check it was 153/93. Lopez catheter was placed. Patient pancultured. Urinalysis negative for infection. His CBC showed no leukocytosis. Urine drug screen positive for amphetamines. Lactic acid 3.9. Chest x-ray my interpretation is bilateral pneumonia and good placement of ET tube. Radiologist does agree. KUB states good placement of the OG tube. The radiologist does also agree with this. Patient's blood gas was concerning as his pH is 6.9, CO2 95 PO2 [address]iscuss[address] with Dr. Farfan and came to the evaluate patient at bedside. Adjustments to the ventilator performed and he is now satting well at about 94%. He was taken over to CT for CT of the brain, and taken upstairs. The rest of his blood work is currently pending. Impression: 1. Cardiopulmonary arrest 2. drug overdose 3. Aspiration pneumonia 4. Altered mental status 5. Lactic acidosis Lab Data Attestation: I reviewed the patient's lab results. Labs: Laboratory Results - last 24 hr 08/14/21 08/14/21 08/14/21 08:50 08:50 09:15 WBC 10.7 RBC 5.48 Hgb 18.3 H* Hct 54.0 MCV 98.5 H MCH 33.4 H MCHC 33.9 RDW Std Deviation 43.8 RDW Coeff of Alphonse 12.1 Plt Count 273 MPV 8.7 Immature Gran % (Auto) 2.900 H Neut % (Auto) 79.3 H Lymph % (Auto) 9.7 L [place] % (Auto) 6.8 Eos % (Auto) 0.3 Baso % (Auto) 1.0 Absolute Neuts (auto) 8.5 H Absolute Lymphs (auto) 1.04 Nucleated RBC % 0.2 Differential Comment COMMENT Diff Path Review May foll Sodium Potassium Chloride Carbon Dioxide Anion Gap BUN Creatinine Estim Creat Clear Calc Est GFR (MDRD) Af Amer Est GFR (MDRD) Non-Af BUN/Creatinine Ratio Glucose Lactic Acid Calcium Total Bilirubin AST ALT Alkaline Phosphatase Total Creatine Kinase Troponin I High Sens Total Protein Albumin Globulin Albumin/Globulin Ratio Urine Color Yellow Urine Clarity Sl. Cloudy Urine pH 6.0 Ur Specific [place] 1.015 Urine Protein 100 H Urine Glucose (UA) Normal Urine Ketones Negative Urine Occult Blood 250 H Urine Nitrite Negative Urine Bilirubin Negative Urine Urobilinogen Normal Ur Leukocyte Esterase Negative Urine RBC 5-10 SEEN Urine WBC 0 SEEN Ur Squamous Epith Cells 0 SEEN Urine Bacteria 0 SEEN Urine Mucus 0 SEEN Urine Opiates Screen NEGATIVE Urine Methadone Screen NEGATIVE Ur Barbiturates Screen NEGATIVE Ur Phencyclidine Scrn NEGATIVE Ur Amphetamines Screen POSITIVE H MDMA (Ecstasy) Screen NEGATIVE U Benzodiazepines Scrn NEGATIVE Urine Cocaine Screen NEGATIVE U Cannabinoids Screen NEGATIVE Ur Drug Screen Comment 08/14/21 08/14/21 08/14/21 09:15 09:15 09:15 WBC RBC Hgb Hct MCV MCH MCHC RDW Std Deviation RDW Coeff of Alphonse Plt Count MPV Immature Gran % (Auto) Neut % (Auto) Lymph % (Auto) [place] % (Auto) Eos % (Auto) Baso % (Auto) Absolute Neuts (auto) Absolute Lymphs (auto) Nucleated RBC % Differential Comment Diff Path Review Sodium Cancelled Potassium Cancelled Chloride Cancelled Carbon Dioxide Cancelled Anion Gap Cancelled BUN Cancelled Creatinine Cancelled Estim Creat Clear Calc Cancelled Est GFR (MDRD) Af Amer Cancelled Est GFR (MDRD) Non-Af Cancelled BUN/Creatinine Ratio Cancelled Glucose Cancelled Lactic Acid 3.9 H* Calcium Cancelled Total Bilirubin Cancelled AST Cancelled ALT Cancelled Alkaline Phosphatase Cancelled Total Creatine Kinase Cancelled Troponin I High Sens Cancelled Total Protein Cancelled Albumin Cancelled Globulin Cancelled Albumin/Globulin Ratio Cancelled Urine Color Urine Clarity Urine pH Ur Specific [place] Urine Protein Urine Glucose (UA) Urine Ketones Urine Occult Blood Urine Nitrite Urine Bilirubin Urine Urobilinogen Ur Leukocyte Esterase Urine RBC Urine WBC Ur Squamous Epith Cells Urine Bacteria Urine Mucus Urine Opiates Screen Urine Methadone Screen Ur Barbiturates Screen Ur Phencyclidine Scrn Ur Amphetamines Screen MDMA (Ecstasy) Screen U Benzodiazepines Scrn Urine Cocaine Screen U Cannabinoids Screen Ur Drug Screen Comment ABG Data ABG results: ABG 08/14/21 09:17 Specimen Type ART Sample Site R Radial pH 6.99 L* Bicarbonate Actual 22.7 Total CO2 26 Base Excess -9 L O2 Saturation 78 L ABG pCO2 95.0 H* ABG pO2 66 L Radiography Diagnostic Testing: Clinical Impression(s) from Imaging Studies Chest X-Ray 08/14/21 08:31 IMPRESSION: The support tubes are in good position. Bilateral airspace disease worse in the left hemithorax. Electronically Signed: Gm Robbins MD at 9:06 EDT , KUB X-Ray 08/14/21 08:32 IMPRESSION: The tip of the orogastric tube is in the fundal portion of the stomach. Electronically Signed: Gm Robbins MD at 9:05 EDT , Discharge Plan Triage Chief Complaint: Unresponsive ED Provider: Erick Eddy Dx/Rx/DC Orders Primary Care Provider: Care Physician,No Primary
--- NOTE | 2021-08-14 11:07 | NURSING ---
on arrival to ICU, propofol running at 25 mcg/kg/min
--- NOTE | 2021-08-14 11:16 | ED.RN ---
[id number] report called to [facility]
[2021-08-14 11:31] LABS: Base Excess -4 mmol/L (-2 to +2); Bicarbonate 25.1 mmol/L (22-26); Blood Gas Specimen Type ART; FI02 100; Mode AC; O2 Delivery Device ET Tube; PEEP 12; PO2 55 mmHG (75-100); RR 14; SITE L Brach; SO2 75 % (95-99); Total Carbon Dioxide 28 mmol/L; Vt 450; pCO2 78.1 mmHg (35-45); pH 7.12 (7.35-7.45)
--- NOTE | 2021-08-14 11:40 | NURSING ---
Juana at bedside for central line placement
--- NOTE | 2021-08-14 12:00 | RAD_ITS ---
STUDY: X-RAY CHEST REASON FOR EXAM: Male, 36 years old. Line placement -- central line TECHNIQUE: Single AP portable view of the chest. COMPARISON: None. FINDINGS: An endotracheal tube is in situ. The tip of the tube is at 5.4 cm proximal to the lisbet. An orogastric tube is seen with the tip in the body of the stomach. A right-sided central catheter has been placed with the tip at the junction of the superior vena cava and right atrium. Diffuse airspace disease in the right lung. Increased markings in the left lung more prominent in the left lung apex. There is no demonstrated pleural abnormality. Normal size heart. Normal mediastinum and minal. Normal visualized pulmonary arteries. Normal visualized aortic arch and descending thoracic aorta. Normal visualized thoracic spine. Normal visualized ribs, clavicles, and shoulders. There is no demonstrated abnormality of the visualized soft tissue structures of the upper abdomen. RAD/Chest 1 View (Portable) IMPRESSION: Bilateral airspace disease worse in the right hemithorax. Electronically Signed: Gm Robbins MD at 12:26 EDT ,
--- NOTE | 2021-08-14 12:10 | EX.PCM.CONCC ---
Assessment & Plan Assessment/Plan (1) Acute respiratory failure: PLAN: RECOMMENDATIONS: 1. Continue assist control mode mechanical ventilation. Wean FiO2/PEEP for saturations greater than 90%. 2. Obtain repeat arterial blood gas in [address] central venous catheter. 4. Obtain comprehensive metabolic profile and recheck lactate. 5. Stop continuous IV fluids. 6. Start appropriate GI prophylaxis. 7. Send blood cultures. IMPRESSIONS: 1. Acute combined respiratory failure The patient presented to the hospital in an unresponsive/encephalopathic state and was emergently intubated in the emergency department. He did have a [place] aspiration event at that time and subsequently went on to develop significant bilateral infiltrates. The patient will be continued on assist control mode mechanical ventilation. Sputum culture will be obtained. He has been initiated on appropriate broad-spectrum antimicrobials. Plan to obtain follow-up arterial blood gas. Wean FiO2 and PEEP, as tolerated, to maintain saturations at or above 90%. It does appear that the precipitating etiology for his acute presentation was likely secondary to overdose. 2. Sepsis The patient presented with sepsis due to [place] aspiration pneumonia with acute sepsis related organ dysfunction as evidenced by hypotension, acute respiratory failure requiring invasive mechanical ventilatory support and lactic acidemia. Nevertheless, the patient's multisystem organ failure and lactic acidemia could also certainly be attributable to his overdose and prolonged downtime. However, the patient is now febrile with extensive bilateral infiltrates. Therefore, he will be continued on broad-spectrum antimicrobials and cultures will be obtained. If needed, vasopressor support will be initiated. The patient will not receive the full sepsis fluid protocol of 30 cc/kg, given his tenuous respiratory status and concern for worsening oxygenation. 3. Encephalopathy Clinical concern for anoxic brain injury. CT head did reveal findings concerning anoxic injury. Plan to continue current supportive measures for the next 48 to 72 hours. If the patient remains unchanged neurologically, will consider additional work-up including MRI brain. 4. Acute kidney injury/acute liver injury/hyperkalemia Likely secondary to acute presentation including respiratory failure due to overdose and ensuing sepsis. As noted above, plan to continue supportive measures. The patient's hyperkalemia will be medically managed. Continue to monitor liver and renal function. 5. History of heroin dependency Complicates care, management, recovery and prognosis. Continue supportive measures as noted above. Prognosis is overall quite poor. TIME: 41 minutes of critical care time, independent of procedures, was spent addressing the patient's acute combined respiratory failure, sepsis, encephalopathy, acute kidney injury, acute liver injury, hyperkalemia, review of all data and collaboration with the care team. HPI Consult Data Date of Consult: 08/14/21 HPI Narrative Reason for Consultation: Acute combined respiratory failure HPI Narrative: The patient is a 36-year-old male, with a history as outlined below, who presented to the emergency department via EMS on the morning of August 14 after being found unresponsive. The patient has an apparent history of heroin dependency, but has apparently been in remission for the last year. According to EMS documentation, approximately 6 to 7 hours had elapsed since the time the patient was last noted to have been seen normal. He did receive Narcan by EMS providers. I did speak with his mother at the bedside this afternoon, who indicated that the patient has been clean since October 2020 but apparently relapsed earlier this week. Immediately on arrival to the emergency department, the patient was intubated. However, per the ED provider, after receiving sedation and a paralytic, the patient began to vomit profusely and experienced a witnessed aspiration event. The patient was successfully intubated and started on broad-spectrum antimicrobials. On presentation to the emergency department, the patient was noted to be afebrile and hemodynamically stable. Initial laboratory evaluation revealed an elevated hemoglobin at 18.3 g/dL. Lactate was elevated at 3.9. Urine analysis was unremarkable. Toxicology screen was positive for amphetamines. Plain film chest x-ray revealed bilateral airspace disease. CT head revealed findings concerning for anoxic brain injury. [facility] [place] Medical History (Updated 08/14/21 @ 12:57 by Leny Giron) Substance abuse Home Medications clindamycin HCl [Cleocin HCl] 300 mg PO Q6H #40 cap 06/29/21 [Rx Last Taken Unknown] oxycodone-acetaminophen [Percocet] 1 tab PO Q6H PRN 3 Days #12 tab 06/29/21 [Rx Last Taken Unknown] Allergy/AdvReac Type Severity Reaction Status Date / Time sulfamethoxazole Allergy Hives Verified 09/12/20 21:43 [From Bactrim] trimethoprim [From Bactrim] Allergy Hives Verified 09/12/20 21:43 Social History Smoking Status: Current every day smoker tobacco type: cigarettes ROS Review of Systems ROS Unobtainable: due to endotracheal tube and due to mental condition Physical Exam Const General Appearance: ill appearing, intubated and patient mechanically ventilated Nutritional Appearance: obese HEENT normocephalic and head/scalp atraumatic Mouth: endotracheal tube in place and OG tube in place Eyes Eyes Narrative: Sluggish pupillary reflex. Neck supple General: trachea midline and CVC in place Chest inspection of chest normal Resp Effort and Inspection: tachypneic and labored Auscultation: rales and diminished lung sounds Cardio S1 normal heart sound and S2 normal heart sound Rate: tachycardic GI normal to inspection, nondistended, normoactive bowel sounds Extremity no clubbing, cyanosis or edema Skin no rashes or lesions noted Neuro Neuro Narrative: The patient is currently overbreathing the set rate on the ventilator but is not currently responsive to verbal or tactile stimulation. Lab / Micro Data Result Diagrams: 08/14/21 09:15 08/14/21 12:30 Labs: Laboratory Results - last 24 hr 08/14/21 08:50: Urine Opiates Screen NEGATIVE, Urine Methadone Screen NEGATIVE, Ur Barbiturates Screen NEGATIVE, Ur Phencyclidine Scrn NEGATIVE, Ur Amphetamines Screen POSITIVE H, MDMA (Ecstasy) Screen NEGATIVE, U Benzodiazepines Scrn NEGATIVE, Urine Cocaine Screen NEGATIVE, U Cannabinoids Screen NEGATIVE, Ur Drug Screen Comment 08/14/21 08:50: Urine Color Yellow, Urine Clarity Sl. Cloudy, Urine pH 6.0, Ur Specific [place] 1.015, Urine Protein 100 H, Urine Glucose (UA) Normal, Urine Ketones Negative, Urine Occult Blood 250 H, Urine Nitrite Negative, Urine Bilirubin Negative, Urine Urobilinogen Normal, Ur Leukocyte Esterase Negative, Urine RBC 5-10 SEEN, Urine WBC 0 SEEN, Ur Squamous Epith Cells 0 SEEN, Urine Bacteria 0 SEEN, Urine Mucus 0 SEEN 08/14/21 09:15: WBC 10.7, RBC 5.48, Hgb 18.3 H*, Hct 54.0, MCV 98.5 H, MCH 33.4 H, MCHC 33.9, RDW Std Deviation 43.8, RDW Coeff of Alphonse 12.1, Plt Count 273, MPV 8.7, Immature Gran % (Auto) 2.900 H, Neut % (Auto) 79.3 H, Lymph % (Auto) 9.7 L, [place] % (Auto) 6.8, Eos % (Auto) 0.3, Baso % (Auto) 1.0, Absolute Neuts (auto) 8.5 H, Absolute Lymphs (auto) 1.04, Nucleated RBC % 0.2, Differential Comment COMMENT, Diff Path Review May foll 08/14/21 09:15: Sodium Cancelled, Potassium Cancelled, Chloride Cancelled, Carbon Dioxide Cancelled, Anion Gap Cancelled, BUN Cancelled, Creatinine Cancelled, Estim Creat Clear Calc Cancelled, Est GFR (MDRD) Af Amer Cancelled, Est GFR (MDRD) Non-Af Cancelled, BUN/Creatinine Ratio Cancelled, Glucose Cancelled, Calcium Cancelled, Total Bilirubin Cancelled, AST Cancelled, ALT Cancelled, Alkaline Phosphatase Cancelled, Troponin I High Sens Cancelled, Total Protein Cancelled, Albumin Cancelled, Globulin Cancelled, Albumin/Globulin Ratio Cancelled 08/14/21 09:15: Lactic Acid 3.9 H* 08/14/21 09:15: Total Creatine Kinase Cancelled ABG Data ABG results: ABG 08/14/21 08/14/21 09:17 11:25 Specimen Type ART ART Sample Site R Radial L Brach pH 6.99 L* 7.12 L* Bicarbonate Actual 22.7 25.1 Total CO2 26 28 Base Excess -9 L -4 L O2 Saturation 78 L 75 L O2 % 100 ABG pCO2 95.0 H* 78.1 H* ABG pO2 66 L 55 L Respiration Rate 14 O2 Delivery Device ET Tube Vent Mode AC Tidal Volume 450 POC PEEP 12 Crit Call To/Read Back Yes Blood Gas Notified Whom BROWN Radiology Impression Chest X-Ray 08/14/21 08:31 IMPRESSION: The support tubes are in good position. Bilateral airspace disease worse in the left hemithorax. Electronically Signed: Gm Robbins MD at 9:06 EDT , KUB X-Ray 08/14/21 08:32 IMPRESSION: The tip of the orogastric tube is in the fundal portion of the stomach. Electronically Signed: Gm Robbins MD at 9:05 EDT , Brain CT 08/14/21 08:33 IMPRESSION: Findings suggestive of anoxic brain injury. Electronically Signed: Gm Robbins MD at 10:53 EDT , Charges/Coding Procedures Hospitalists Procedures: [id number]
--- NOTE | 2021-08-14 12:26 | PCM.OP.BLANK ---
Operative Report Date of Procedure: 08/14/21 Central line placement procedure note Indication: IV access/hemodynamic instability/vasoactive medications Procedure: A time-out was completed to verify correct patient, indication, medication allergies, procedure, coagulation studies, informed consent signed, and equipment needed. The patient was placed in the supine position for a central line placement to the rt IJ vein. The patients rt neck was prepped using chlorhexidine and a full body sterile drape was applied. 1% lidocaine was used to anesthetize the surrounding skin. A 7fr 16 cm blue guard triple lumen catheter introduced into the internal jugular vein using the modified seldinger technique with the assistance of ultrasound. The catheter was threaded smoothly over the guidewire, the guidewire was removed easily, nonpulsatile blood returned. All ports were aspirated of air and flushed with sterile saline. The catheter was sutured in place and covered with an occlusive dressing impregnated with chlorhexidine. Post-procedure: The patient tolerated the procedure well. Vital signs remained stable. EBL 5cc. No complications. Chest X Ray ordered to confirm tip placement and the absence of pneumothorax. Procedures Hospitalists Procedures: [id number] Insert Non-tunnel CV Cath
[2021-08-14 12:58] LABS: International Normalized Ratio 1.3; Prothrombin Time (Protime)PT. 15.3 SECONDS (11.7-14.9)
[2021-08-14 12:59] LABS: Partial Thromboplast Time 37.1 Seconds (24.1-36.2)
--- NOTE | 2021-08-14 12:59 | NURSING ---
patient unable to answer admission questions due to intubation, unresponsive. Mother at bedside to answer questions.
[2021-08-14 13:04] LABS: ALB/GLOB Ratio 0.8 RATIO (0.9-2.4); AST(SGOT) 462 U/L (15-37); Alanine Aminotransfer ALT/SGPT 210 U/L (16-61); Albumin, Serum 3.3 g/dL (3.2-5.0); Alkaline Phosphatase 129 U/L (45-117); Anion Gap 5 (5-15); BUN 26 mg/dL (7-18); BUN/Creat Ratio 11.8 RATIO (10-20); Calcium,Total 8.4 mg/dL (8.5-10.1); Chloride 109 mmol/L (98-107); Creatinine, Serum 2.21 mg/dL (0.70-1.30); EST Glomerular Filtration Rate 36 mL/min (>60); Est Glom Filt Rate - Afr Amer 44 mL/min (>60); Estimated Creatinine Clearance 50.72 ml/min; Glucose 50 mg/dL (74-106); Potassium 6.3 mmol/L (3.5-5.1); Protein, Total 7.3 g/dL (6.4-8.2); Sodium Level 140 mmol/L (136-145)
[2021-08-14 13:20] LABS: Reflex Lactate? Y
--- NOTE | 2021-08-14 13:36 | NURSING ---
HR dropped on monitor to the 60s, this RN in room, carotid pulse palpable weak, Dr. Farfan called to floor, respiratory at bedside for ABG.
[2021-08-14 13:48] LABS: CPK Total, Creatine Kinase 6634 U/L (39-308); Troponin-I HS 336 pg/mL (3.0-78.0)
[2021-08-14] MEDS: Lactated Ringers 1,000 ML 999 ML IV (13:50)
[2021-08-14 14:06] LABS: Base Excess -5 mmol/L (-2 to +2); Bicarbonate 23.8 mmol/L (22-26); Blood Gas Specimen Type ART; FI02 100; Mode AC; O2 Delivery Device ET Tube; PEEP 12; PO2 31 mmHG (75-100); RR 18; SITE L Brach; SO2 41 % (95-99); Total Carbon Dioxide 26 mmol/L; Vt 500; pCO2 70.8 mmHg (35-45); pH 7.14 (7.35-7.45)
[2021-08-14] MEDS: Calcium Gluconate 1 GM/10 ML Vial IVP (14:13)
[2021-08-14] MEDS: Dextrose 10%-Water 250 ML 999 ML IV ×3 (14:13→18:43)
--- NOTE | 2021-08-14 14:13 | PCM.RX.CS ---
Consult Pharmacy has been consulted to manage selected antiobiotic: Vancomycin Type of Consult: New start Suspected Infection: Pneumonia Prior Doses of Antibiotics Received/Current Regimen: Received 1750mg iv x 1 in ER 08.14.21 @1737. Labs: Sodium 140 mmol/L (136-145) 08/14/21 12:30 Potassium 6.3 mmol/L (3.5-5.1) H* 08/14/21 12:30 Chloride 109 mmol/L (98-107) H 08/14/21 12:30 Carbon Dioxide 26.0 mmol/L (21.0-32.0) 08/14/21 12:30 Anion Gap 5 (5-15) 08/14/21 12:30 BUN 26 mg/dL (7-18) H 08/14/21 12:30 Creatinine 2.21 mg/dL (0.70-1.30) H 08/14/21 12:30 Est GFR (MDRD) Af Amer 44 mL/min (>60) L 08/14/21 12:30 Est GFR (MDRD) Non-Af 36 mL/min (>60) L 08/14/21 12:30 BUN/Creatinine Ratio 11.8 RATIO (10-20) 08/14/21 12:30 Glucose 50 mg/dL (74-106) L 08/14/21 12:30 Microbiology: Microbiology 08/14/21 12:00 Sputum, Induced/Lukens Gram Stain - Final Weight used for dosin.7 kg Estimated Creatinine Clearance: 51 ml/min Goal Trough: 15-20 mcg/mL Pharmacy Plan for Drug Dosing: Will begin 1250mg iv q12h per protocol. Trough level ordered for before 4th total dose. Pharmacy Service will continue to monitor and adjust dosing as required. Follow-Up Labs: Trough Vancomycin - 08.15.21 @2029
[2021-08-14] MEDS: Insulin Lispro 100 UNIT/ML INSULN.PEN 10 UNIT SC (14:14)
[2021-08-14] MEDS: Piperacil/Tazobactam 3.375 GM/50 ML ML IV ×2 (14:14→22:22)
--- NOTE | 2021-08-14 14:15 | RAD_ITS ---
STUDY: X-RAY CHEST REASON FOR EXAM: Male, 36 years old. ETT placement, hypoxia TECHNIQUE: Single AP portable view of the chest. COMPARISON: Comparison is made with prior study dated 08/14/2021 at 11:55 AM. FINDINGS: Endotracheal tube is seen with the tip at 4.2 cm proximal to the lisbet. An orogastric tube is seen with the tip below the left hemidiaphragm. A right-sided central catheter is seen with the tip at the junction of the superior vena cava and right atrium. Since prior study, there has been progressive bilateral airspace disease. Blunting of the right cosmetic angle. Findings just possible small left pleural effusion. Normal size heart. Normal mediastinum and minal. Normal visualized pulmonary arteries. Normal visualized aortic arch and descending thoracic aorta. Normal visualized thoracic spine. Normal visualized ribs, clavicles, and shoulders. There is no demonstrated abnormality of the visualized soft tissue structures of the upper abdomen. RAD/Chest 1 View (Portable) IMPRESSION: Progressive bilateral airspace disease as compared to prior study. Electronically Signed: Gm Robbins MD at 14:28 EDT ,
--- NOTE | 2021-08-14 14:30 | CHAPLAIN ---
Type of Pastoral Visit _x__ Initial Visit ___ Follow-up Visit ___ On-call Visit ___ General Patient Visit ___ Spiritual Assessment ___ Family Conference ___ Bereavement ___ Rapid Response ___ Code Blue ___ Other (describe below) Pastoral Care Referral From ___ Patient ___ Family _x__ Nurse _x__ Physician ___ Corn Sheller ___ Set Up Mechanic Crown Assembly Machine ___ Other (describe below) Sacrament/Intervention ___ Active listening ___ Anointing ___ Druze ___ Bereavement ___ Communion ___ Evette exploration ___ ___ Life review _x__ Prayer ___ Reconciliation ___ Sacrament of Sick _x__ Supportive presence ___ Wedding ___ Other (describe below) Pastoral Comments patient is intubated and unresponsive; family members have gathered at bedside including parents and a sister; other family may be coming as patient is critical condition; offer of presence, support, and prayer; family welcomes prayer and the support; stayed at bedside after medical team left for a few minutes; offer ongoing support as needed
--- NOTE | 2021-08-14 14:31 | CASEMGMT ---
Social Work Pt's sister, mother and father currently at patient's bedside. SW visited and provided support to family. No verbalized needs from family at this time. SW will remain available should needs arise. BASIA Guallpa
--- NOTE | 2021-08-14 16:02 | CHAPLAIN ---
Type of Pastoral Visit ___ Initial Visit _x__ Follow-up Visit ___ On-call Visit ___ General Patient Visit ___ Spiritual Assessment ___ Family Conference ___ Bereavement ___ Rapid Response ___ Code Blue ___ Other (describe below) Pastoral Care Referral From ___ Patient _x__ Family ___ Nurse ___ Physician ___ Principal Military Analyst ___ Calculus Teacher ___ Other (describe below) Sacrament/Intervention ___ Active listening ___ Anointing ___ Restorationism ___ Bereavement ___ Communion ___ Evette exploration ___ ___ Life review _x__ Prayer ___ Reconciliation ___ Sacrament of Sick _x__ Supportive presence ___ Wedding ___ Other (describe below) Pastoral Comments more family has gathered; met with another sister and juancarlos along with parents; family requests prayers again; supported them with presence and prayer;
[2021-08-14 16:43] LABS: Reflex Lactate? Y
--- NOTE | 2021-08-14 17:05 | HP.PCM.HOS_ITS ---
HPI - General General Date of Admission: 08/14/21 Date of Service: 08/14/21 Chief Complaint: Respiratory failure, encephalopathy, suspected drug overdose HPI Wm CREWS, is a 36 M who presents to the emergency room at [facility] after being found down at home, last known time he was well was 1 AM this morning. Patient was found unresponsive at home with snoring respirations, he was transported to the ER by squad for evaluation, he was given several doses of IV Narcan without an effect on his consciousness. An attempt was going to be made to intubate the patient for airway protection, before he was intubated in the ER however, the patient had a episode of emesis followed by an episode of a loss of pulse, CODE BLUE was called and ACLS was begun, after 1 round of chest compressions, patient got his pulse back and was ultimately intubated.. Labs were obtained in the emergency room, white blood cell count was 10.7, hemoglobin was 18.3, arterial blood gas was obtained after the patient was on t he ventilator, pH was 7.14, PCO2 was 70.8, PO2 was 31, this was on 100% oxygen. Chemistry profile was abnormal for a potassium of 6.3, BUN was 26, creatinine was 2.21. Glucose was 50. Total bilirubin was 1.3, AST was 462, ALT was 210, CPK was 6634, and troponin was 336. Tox screen was positive for amphetamines, negative for opiates and benzodiazepines. Chest x-ray showed bilateral diffuse infiltrates similar to the appearance of ARDS. Critical care was contacted and patient was admitted to ICU for further care. [facility] Medical History (Updated 08/14/21 @ 12:57 by Leny Giron) Substance abuse Home Medications clindamycin HCl [Cleocin HCl] 300 mg PO Q6H #40 cap 06/29/21 [Rx Last Taken Unknown] oxycodone-acetaminophen [Percocet] 1 tab PO Q6H PRN 3 Days #12 tab 06/29/21 [Rx Last Taken Unknown] Allergy/AdvReac Type Severity Reaction Status Date / Time sulfamethoxazole Allergy Hives Verified 09/12/20 21:43 [From Bactrim] trimethoprim [From Bactrim] Allergy Hives Verified 09/12/20 21:43 Social History Smoking Status: Current every day smoker tobacco type: cigarettes ROS ROS Narrative Review of systems was unobtainable due to the fact the patient was on the vent and comatose. Vital Signs Vital Signs Vital Signs: 08/14/21 08:22 08/14/21 08:36 08/14/21 08:44 Temperature 96.7 F L Temperature Source Temporal Pulse Rate 103 H 114 H Respiratory Rate 14 Respiratory Effort Mechanically Ventilated Respiratory Depth Respiratory Pattern Blood Pressure 153/93 H Blood Pressure [BP] Blood Pressure Mean 113 Blood Pressure Mean [BP] Blood Pressure Source Blood Pressure Source [BP] Blood Pressure Position Blood Pressure Position [BP] Blood Pressure Location Blood Pressure Location [BP] Pulse Ox 92 Oxygen Delivery Method Ambu-Bag Mechanical Ventilator Fraction of Inspired Oxygen (FIO2) 100 08/14/21 08:57 08/14/21 09:07 08/14/21 09:08 Temperature 96.7 F L 96.7 F L Temperature Source Temporal Temporal Pulse Rate 113 H Respiratory Rate 20 H Respiratory Effort Respiratory Depth Respiratory Pattern Blood Pressure 153/93 H 185/113 H Blood Pressure [BP] Blood Pressure Mean 137 Blood Pressure Mean [BP] Blood Pressure Source Blood Pressure Source [BP] Blood Pressure Position Blood Pressure Position [BP] Blood Pressure Location Blood Pressure Location [BP] Pulse Ox 96 Oxygen Delivery Method Ambu-Bag Mechanical Ventilator Mechanical Ventilator Fraction of Inspired Oxygen (FIO2) 08/14/21 09:33 08/14/21 09:48 08/14/21 09:49 Temperature Temperature Source Pulse Rate 116 H 113 H 115 H Respiratory Rate 24 H 28 H 28 H Respiratory Effort Respiratory Depth Respiratory Pattern Blood Pressure 178/128 H 170/100 H 142/86 H Blood Pressure [BP] Blood Pressure Mean 144 123 104 Blood Pressure Mean [BP] Blood Pressure Source Blood Pressure Source [BP] Blood Pressure Position Blood Pressure Position [BP] Blood Pressure Location Blood Pressure Location [BP] Pulse Ox 83 78 78 Oxygen Delivery Method Mechanical Ventilator Mechanical Ventilator Mechanical Ventilator Fraction of Inspired Oxygen (FIO2) 08/14/21 09:55 08/14/21 09:58 08/14/21 10:00 Temperature 96.6 F L 96.6 F L Temperature Source Core Core Pulse Rate 117 H 119 H Respiratory Rate 28 H 34 H Respiratory Effort Respiratory Depth Respiratory Pattern Blood Pressure 145/99 H 145/99 H Blood Pressure [BP] Blood Pressure Mean 114 114 Blood Pressure Mean [BP] Blood Pressure Source Blood Pressure Source [BP] Blood Pressure Position Blood Pressure Position [BP] Blood Pressure Location Blood Pressure Location [BP] Pulse Ox 95 86 94 Oxygen Delivery Method Mechanical Ventilator Mechanical Ventilator Fraction of Inspired Oxygen (FIO2) 08/14/21 10:58 08/14/21 11:00 08/14/21 11:02 Temperature 98.9 F Temperature Source Core Pulse Rate 126 H 123 H 123 H Respiratory Rate 33 H 34 H 34 H Respiratory Effort Mechanically Ventilated Respiratory Depth Shallow Respiratory Pattern Tachypnea Blood Pressure 110/65 Blood Pressure [BP] 110/65 Blood Pressure Mean 80 Blood Pressure Mean [BP] 80 Blood Pressure Source Monitor Blood Pressure Source [BP] Monitor Blood Pressure Position Semi-Fowlers Blood Pressure Position [BP] Semi-Fowlers Blood Pressure Location Left Arm Blood Pressure Location [BP] Left Arm Pulse Ox 94 96 96 Oxygen Delivery Method Mechanical Ventilator Mechanical Ventilator Mechanical Ventilator Fraction of Inspired Oxygen (FIO2) 100 100 100 08/14/21 11:20 08/14/21 11:21 08/14/21 11:30 Temperature 99.7 F H 99.7 F H 100.0 F H Temperature Source Core Core Core Pulse Rate 137 H 137 H 124 H Respiratory Rate 35 H 35 H 36 H Respiratory Effort Respiratory Depth Respiratory Pattern Blood Pressure 145/98 H 146/110 H Blood Pressure [BP] 145/98 H 146/110 H Blood Pressure Mean 113 122 Blood Pressure Mean [BP] 113 122 Blood Pressure Source Monitor Monitor Blood Pressure Source [BP] Monitor Monitor Blood Pressure Position Semi-Fowlers Semi-Fowlers Blood Pressure Position [BP] Semi-Fowlers Semi-Fowlers Blood Pressure Location Left Arm Left Arm Blood Pressure Location [BP] Left Arm Left Arm Pulse Ox 95 95 94 Oxygen Delivery Method Mechanical Ventilator Mechanical Ventilator Mechanical Ventilator Fraction of Inspired Oxygen (FIO2) 100 100 100 08/14/21 11:42 08/14/21 12:00 08/14/21 12:15 Temperature 101.2 F H 101.3 F H Temperature Source Core Core Pulse Rate 127 H 124 H 127 H Respiratory Rate 35 H 23 H 35 H Respiratory Effort Respiratory Depth Respiratory Pattern Blood Pressure 72/58 L Blood Pressure [BP] 74/56 L Blood Pressure Mean 62 Blood Pressure Mean [BP] 62 Blood Pressure Source Monitor Blood Pressure Source [BP] Monitor Blood Pressure Position Semi-Fowlers Blood Pressure Position [BP] Semi-Fowlers Blood Pressure Location Left Arm Blood Pressure Location [BP] Left Arm Pulse Ox 92 76 81 Oxygen Delivery Method Mechanical Ventilator Mechanical Ventilator Fraction of Inspired Oxygen (FIO2) 100 100 100 08/14/21 12:30 08/14/21 13:00 08/14/21 13:36 Temperature 101.6 F H 102.2 F H Temperature Source Core Core Pulse Rate 128 H 120 H 72 Respiratory Rate 31 H 33 H 32 H Respiratory Effort Respiratory Depth Respiratory Pattern Blood Pressure Blood Pressure [BP] 84/65 L 87/57 L 93/48 L Blood Pressure Mean Blood Pressure Mean [BP] 71 67 63 Blood Pressure Source Blood Pressure Source [BP] Monitor Monitor Monitor Blood Pressure Position Blood Pressure Position [BP] Semi-Fowlers Semi-Fowlers Semi-Fowlers Blood Pressure Location Blood Pressure Location [BP] Left Arm Left Arm Left Arm Pulse Ox 87 84 69 Oxygen Delivery Method Mechanical Ventilator Mechanical Ventilator Mechanical Ventilator Fraction of Inspired Oxygen (FIO2) 100 100 100 08/14/21 13:45 08/14/21 14:00 08/14/21 14:15 Temperature 103.1 F H Temperature Source Core Pulse Rate 93 113 H 113 H Respiratory Rate 28 H 28 H Respiratory Effort Respiratory Depth Respiratory Pattern Tachypnea Blood Pressure 105/42 L 80/45 L Blood Pressure [BP] 70/43 L Blood Pressure Mean 63 56 Blood Pressure Mean [BP] 52 Blood Pressure Source Monitor Blood Pressure Source [BP] Monitor Blood Pressure Position Semi-Fowlers Blood Pressure Position [BP] Semi-Fowlers Blood Pressure Location Left Arm Blood Pressure Location [BP] Left Arm Pulse Ox 43 92 Oxygen Delivery Method Mechanical Ventilator Fraction of Inspired Oxygen (FIO2) 100 100 08/14/21 14:30 08/14/21 14:45 08/14/21 15:00 Temperature 102.5 F H Temperature Source Core Pulse Rate 138 H Respiratory Rate 19 H Respiratory Effort Respiratory Depth Respiratory Pattern Blood Pressure 91/47 L 83/41 L 63/39 L Blood Pressure [BP] Blood Pressure Mean 61 55 47 Blood Pressure Mean [BP] Blood Pressure Source Blood Pressure Source [BP] Blood Pressure Position Blood Pressure Position [BP] Blood Pressure Location Blood Pressure Location [BP] Pulse Ox 87 Oxygen Delivery Method Mechanical Ventilator Fraction of Inspired Oxygen (FIO2) 100 08/14/21 15:14 08/14/21 15:15 08/14/21 15:30 Temperature Temperature Source Pulse Rate 135 H Respiratory Rate Respiratory Effort Respiratory Depth Respiratory Pattern Blood Pressure 63/41 L 95/49 L Blood Pressure [BP] Blood Pressure Mean 48 64 Blood Pressure Mean [BP] Blood Pressure Source Blood Pressure Source [BP] Blood Pressure Position Blood Pressure Position [BP] Blood Pressure Location Blood Pressure Location [BP] Pulse Ox Oxygen Delivery Method Fraction of Inspired Oxygen (FIO2) 08/14/21 15:45 08/14/21 16:00 08/14/21 16:12 Temperature 102.6 F H Temperature Source Core Pulse Rate 101 H 103 H Respiratory Rate 29 H 30 H Respiratory Effort Mechanically Ventilated Respiratory Depth Shallow Respiratory Pattern Tachypnea Blood Pressure 96/56 L 89/58 L Blood Pressure [BP] Blood Pressure Mean 69 68 Blood Pressure Mean [BP] Blood Pressure Source Monitor Blood Pressure Source [BP] Blood Pressure Position Semi-Fowlers Blood Pressure Position [BP] Blood Pressure Location Left Arm Blood Pressure Location [BP] Pulse Ox 89 91 Oxygen Delivery Method Mechanical Ventilator Fraction of Inspired Oxygen (FIO2) 100 100 08/14/21 16:15 08/14/21 16:45 08/14/21 17:00 Temperature 103.2 F H Temperature Source Core Pulse Rate 119 H Respiratory Rate 33 H Respiratory Effort Respiratory Depth Respiratory Pattern Blood Pressure 94/55 L 86/54 L 88/56 L Blood Pressure [BP] Blood Pressure Mean 68 64 66 Blood Pressure Mean [BP] Blood Pressure Source Monitor Blood Pressure Source [BP] Blood Pressure Position Semi-Fowlers Blood Pressure Position [BP] Blood Pressure Location Left Arm Blood Pressure Location [BP] Pulse Ox 74 Oxygen Delivery Method Mechanical Ventilator Fraction of Inspired Oxygen (FIO2) 100 Weight Weight: 123.7 kg Body Mass Index (BMI) 36.9 Physical Exam Const no apparent distress Constitutional Narrative: Patient was sedated and on the ventilator General Appearance: well kempt and well developed Orientation / Consciousness: awake, oriented to person, oriented to place and oriented to time HEENT normocephalic, head/scalp atraumatic and moist oral mucous membranes Eyes conjunctivae normal Neck nuchal rigidity, supple, no JVD and thyroid normal General: trachea midline Resp normal respiratory effort and clear to auscultation bilaterally Resp Narrative: Patient is sedated and on the ventilator with rapid shallow respirations Auscultation: Negative for rales, rhonchi or wheezes Cardio regular rate, regular rhythm, no murmurs, no rub and no gallops GI normal to inspection, nondistended, normoactive bowel sounds and soft to pa lpation Extremity no clubbing, cyanosis or edema Skin skin turgor normal and no mottling General Skin Exam: no breakdown Neuro no sensory deficits noted Neuro Narrative: Patient is sedated and on the ventilator Psych Psych Narrative: Patient is sedated and on the ventilator Results Lab / Micro Data Result Diagrams: 08/14/21 09:15 08/14/21 12:30 Labs: Laboratory Results - last 24 hr 08/14/21 08:50: Urine Opiates Screen NEGATIVE, Urine Methadone Screen NEGATIVE, Ur Barbiturates Screen NEGATIVE, Ur Phencyclidine Scrn NEGATIVE, Ur Amphetamines Screen POSITIVE H, MDMA (Ecstasy) Screen NEGATIVE, U Benzodiazepines Scrn NEGATIVE, Urine Cocaine Screen NEGATIVE, U Cannabinoids Screen NEGATIVE, Ur Drug Screen Comment 08/14/21 08:50: Urine Color Yellow, Urine Clarity Sl. Cloudy, Urine pH 6.0, Ur Specific [place] 1.015, Urine Protein 100 H, Urine Glucose (UA) Normal, Urine Ketones Negative, Urine Occult Blood 250 H, Urine Nitrite Negative, Urine Bilirubin Negative, Urine Urobilinogen Normal, Ur Leukocyte Esterase Negative, Urine RBC 5-10 SEEN, Urine WBC 0 SEEN, Ur Squamous Epith Cells 0 SEEN, Urine Bacteria 0 SEEN, Urine Mucus 0 SEEN 08/14/21 09:15: WBC 10.7, RBC 5.48, Hgb 18.3 H*, Hct 54.0, MCV 98.5 H, MCH 33.4 H, MCHC 33.9, RDW Std Deviation 43.8, RDW Coeff of Alphonse 12.1, Plt Count 273, MPV 8.7, Immature Gran % (Auto) 2.900 H, Neut % (Auto) 79.3 H, Lymph % (Auto) 9.7 L, Keith % (Auto) 6.8, Eos % (Auto) 0.3, Baso % (Auto) 1.0, Absolute Neuts (auto) 8.5 H, Absolute Lymphs (auto) 1.04, Nucleated RBC % 0.2, Differential Comment COMMENT, Diff Path Review September08/14/21 09:15: Sodium Cancelled, Potassium Cancelled, Chloride Cancelled, Carbon Dioxide Cancelled, Anion Gap Cancelled, BUN Cancelled, Creatinine Cancelled, Estim Creat Clear Calc Cancelled, Est GFR (MDRD) Af Amer Cancelled, Est GFR (MDRD) Non-Af Cancelled, BUN/Creatinine Ratio Cancelled, Glucose Cancelled, Calcium Cancelled, Total Bilirubin Cancelled, AST Cancelled, ALT Cancelled, Alkaline Phosphatase Cancelled, Troponin I High Sens Cancelled, Total Protein Cancelled, Albumin Cancelled, Globulin Cancelled, Albumin/Globulin Ratio Cancelled 08/14/21 09:15: Lactic Acid 3.9 H* 08/14/21 09:15: Total Creatine Kinase Cancelled 08/14/21 12:30: PT 15.3 H, INR 1.3, APTT 37.1 H 08/14/21 12:30: Total Creatine Kinase 6634 H, Troponin I High Sens 336 H* 08/14/21 12:30: Sodium 140, Potassium 6.3 H*, Chloride 109 H, Carbon Dioxide 26.0, Anion Gap 5, BUN 26 H, Creatinine 2.21 H, Estim Creat Clear Calc 50.72, Est GFR (MDRD) Af Amer 44 L, Est GFR (MDRD) Non-Af 36 L, BUN/Creatinine Ratio 11.8, Glucose 50 L, Calcium 8.4 L, Total Bilirubin 1.30 H, AST 462 H, ALT 210 H, Alkaline Phosphatase 129 H, Total Protein 7.3, Albumin 3.3, Globulin 4.0, Albumin/Globulin Ratio 0.8 L 08/14/21 12:30: Lactic Acid 2.0 08/14/21 14:25: MRSA (PCR) POSITIVE H Micro: Microbiology 08/14/21 12:00 Sputum, Induced/[place] Gram Stain - Final ABG Data ABG results: ABG 08/14/21 08/14/21 08/14/21 09:17 11:25 14:00 Specimen Type ART ART ART Sample Site R Radial L Brach L Brach pH 6.99 L* 7.12 L* 7.14 L* Bicarbonate Actual 22.7 25.1 23.8 Total CO2 26 28 26 Base Excess -9 L -4 L -5 L O2 Saturation 78 L 75 L 41 L O2 % 100 100 ABG pCO2 95.0 H* 78.1 H* 70.8 H* ABG pO2 66 L 55 L 31 L* Respiration Rate 14 18 O2 Delivery Device ET Tube ET Tube Vent Mode AC AC Tidal Volume 450 500 POC PEEP 12 12 Crit Call To/Read Back Yes Yes Blood Gas Notified Whom ADALGISA DIANA Radiology Impression Chest X-Ray 08/14/21 08:31 IMPRESSION: The support tubes are in good position. Bilateral airspace disease worse in the left hemithorax. Electronically Signed: Gm Robbins MD at 9:06 EDT , KUB X-Ray 08/14/21 08:32 IMPRESSION: The tip of the orogastric tube is in the fundal portion of the stomach. Electronically Signed: Gm Robbins MD at 9:05 EDT , Brain CT 08/14/21 08:33 IMPRESSION: Findings suggestive of anoxic brain injury. Electronically Signed: Gm Robbins MD at 10:53 EDT , Chest X-Ray 08/14/21 12:00 IMPRESSION: Bilateral airspace disease worse in the right hemithorax. Electronically Signed: Gm Robbins MD at 12:26 EDT , Chest X-Ray 08/14/21 14:15 IMPRESSION: Progressive bilateral airspace disease as compared to prior study. Electronically Signed: Gm Robbins MD at 14:28 EDT , Assessment & Plan Assessment/Plan (1) Acute respiratory failure: PLAN: 1. Acute combined respiratory failure secondary to suspected unintentional drug overdose-patient was admitted to ICU, critical care was consulted, prognosis remains extremely guarded at this point, I talked briefly with the patient's mother who states that the patient had a narcotic drug problem in the past but has been clean for quite some time. She said she did suspect that he had been using narcotics again but was not able to get him to admit this. The last time he was seen well was approximately 130 this morning, he was brought to the emergency room at approximately 9 AM this morning. #2 Cardiac arrest-patient had a short episode of cardiac arrest while in the ER, chest compressions were performed and he got return of pulse. #3 probable drug overdose-exact drug not known at this time, continue supportive care at this time #4 aspiration pneumonia/pneumonitis with probable ARDS-patient will be maintained on vancomycin and Zosyn, pulmonary is participating in his care #5+ tox screen for amphetamines-supportive care will be given #6 acute septic shock-patient is now on pressor agents, prognosis remains guarded #7 acute kidney injury-complicates care and recovery, IV fluids will be administered, labs will be monitored #8 hyperkalemia-labs will be rechecked #9 probable anoxic brain injury-patient's CT of the brain showed findings suggestive of anoxic brain injury-prognosis remains guarded at this time, I talked briefly with patient's mother who wants full measures at this time. Charges/Coding Visit Charges Inpatient E&M: 99988 Init Hosp L3
[2021-08-14] MEDS: Acetaminophen 650 MG/20 ML UDC GT (17:14)
[2021-08-14 17:56] LABS: Base Excess -5 mmol/L (-2 to +2); Bicarbonate 22.7 mmol/L (22-26); Blood Gas Specimen Type ART; FI02 100; Mode AC; O2 Delivery Device ET Tube; PEEP 12; PO2 34 mmHG (75-100); RR 18; SITE R Brach; SO2 51 % (95-99); Total Carbon Dioxide 25 mmol/L; Vt 500; pCO2 57.9 mmHg (35-45)
--- NOTE | 2021-08-14 18:14 | PCM.HOSP.N ---
Hospitalist Note Patient was reevaluated this afternoon in ICU, he has no pupillary reflex, it has been increasingly difficult to oxygenate him despite the patient being on PEEP and 100% O2, I went and had a discussion with family members in his room, this includes his mother, their desire is not to resuscitate the patient if his heart stops or he stops breathing. Patient was made a DNR CC arrest no intubation, supportive care will continue for now, I suspect he will deteriorate further tonight and end up expiring.
[2021-08-14 18:15] LABS: ALB/GLOB Ratio 0.9 RATIO (0.9-2.4); AST(SGOT) 937 U/L (15-37); Alanine Aminotransfer ALT/SGPT 486 U/L (16-61); Albumin, Serum 2.8 g/dL (3.2-5.0); Alkaline Phosphatase 94 U/L (45-117); Anion Gap 7 (5-15); BUN 32 mg/dL (7-18); BUN/Creat Ratio 10.3 RATIO (10-20); Calcium,Total 8.5 mg/dL (8.5-10.1); Chloride 111 mmol/L (98-107); Creatinine, Serum 3.11 mg/dL (0.70-1.30); EST Glomerular Filtration Rate 24 mL/min (>60); Est Glom Filt Rate - Afr Amer 29 mL/min (>60); Estimated Creatinine Clearance 36.04 ml/min; Globulin 3.1 g/dL (2.2-4.2); Glucose 27 mg/dL (74-106); Protein, Total 5.9 g/dL (6.4-8.2); Sodium Level 143 mmol/L (136-145)
[2021-08-14 19:51] LABS: Bedside Glucose 96 mg/dL (74-106)
[2021-08-14 21:56] LABS: M R Staph aureus DNA By PCR Negative (Negative)
[2021-08-14 21:57] LABS: Probe Check PASS; Specimen Processing Control PASS
[2021-08-15] VITALS (58 sets, daily range): BP systolic 73–126; BP diastolic 42–104; PULSE 115–142; RESP 18–38; TEMP 39–40.8; O2SAT 66–100
[2021-08-15] MEDS: Dextrose 10%-Water 250 ML 999 ML IV ×2 (02:15→07:32)
[2021-08-15 02:26] LABS: Bedside Glucose 31 mg/dL (74-106)
[2021-08-15 02:39] LABS: Absolute Lymphocyte Count 1.07 X10^3/uL (0.83-4.51); Basophil# 0.13 X10^3/uL; Basophil% 0.9 % (0-1); Differential Indicated SCAN CRITERIA MET; Hematocrit 49.1 % (40-54); Lymphocyte # 1.07 X10^3/ul (0.83-4.51); Lymphocyte % 7.6 % (19-41); Mean Corp Hgb Conc 34.6 g/dL (32-36); Mean Corpuscular Hgb 33.4 pg (27.0-32.0); Mean Corpuscular Volume 96.5 fL (80-94); Mean Platelet Vol. 9.7 fl (6.2-12.0); Monocyte# 0.77 X10^3/uL; Monocyte% 5.4 % (0-10); NRBC Flagged by Analyzer 0.3 % (0-5); Neutrophil # 11.97 X10^3/uL (2.7-7.7); Neutrophil % 84.8 % (47-70); POSITIVE MORPHOLOGY YES; Platelet Count 297 K/mm3 (150-450); RBC Distribution Width CV 12.5 % (11.6-14.6); RBC Distribution Width SD 44.4 fl (35.1-43.9); Red Blood Count 5.09 M/mm3 (4.6-6.2); White Blood Count 14.1 K/mm3 (4.4-11.0)
[2021-08-15] MEDS: Acetaminophen 650 MG/20 ML UDC GT ×3 (02:40→18:47)
[2021-08-15 02:52] LABS: Anion Gap 11 (5-15); BUN 44 mg/dL (7-18); BUN/Creat Ratio 9.8 RATIO (10-20); Calcium,Total 8.4 mg/dL (8.5-10.1); Chloride 110 mmol/L (98-107); Creatinine, Serum 4.49 mg/dL (0.70-1.30); EST Glomerular Filtration Rate 16 mL/min (>60); Est Glom Filt Rate - Afr Amer 19 mL/min (>60); Estimated Creatinine Clearance 24.96 ml/min; Glucose 83 mg/dL (74-106); Potassium 5.5 mmol/L (3.5-5.1); Sodium Level 141 mmol/L (136-145)
[2021-08-15 03:16] LABS: Bedside Glucose 75 mg/dL (74-106)
[2021-08-15] MEDS: Piperacil/Tazobactam 3.375 GM/50 ML ML IV ×3 (05:24→22:34)
[2021-08-15] MEDS: TITRATION PARAMETER CHANGE 1 EACH IV (05:35)
--- NOTE | 2021-08-15 05:51 | PN.CC_ITS ---
Assessment & Plan Assessment/Plan (1) Acute respiratory failure: PLAN: RECOMMENDATIONS: 1. Continue assist control mode mechanical ventilation. Wean FiO2/PEEP for saturations greater than 90%. 2. Continue Levophed to maintain a mean arterial pressure at or above 65 mmHg. 3. Continue broad-spectrum antimicrobials. 4. Consider MRI brain. 5. Continue appropriate prophylaxis. 6. Ongoing goals of care discussion with the patient's family. IMPRESSIONS: 1. Acute combined respiratory failure The patient presented to the hospital in an unresponsive/encephalopathic state, following a suspected overdose, and was emergently intubated in the emergency department. He did have a [place] aspiration event at that time and subsequently went on to develop significant bilateral infiltrates and increased oxygen demand consistent with ARDS. The patient will be continued on assist control mode mechanical ventilation. FiO2 and PEEP will be weaned as tolerated. Continue broad-spectrum antimicrobials. 2. Septic shock The patient presented with sepsis due to [place] aspiration pneumonia with acute sepsis related organ dysfunction as evidenced by hypotension, acute respiratory failure requiring invasive mechanical ventilatory support and lactic acidemia. Nevertheless, the patient's multisystem organ failure and lactic acidemia could also certainly be attributable to his overdose and prolonged downtime. However, the patient is febrile with extensive bilateral infiltrates. Therefore, he will be continued on broad-spectrum antimicrobials, as ordered. The patient will not receive the full sepsis fluid protocol of 30 cc/kg, given his tenuous respiratory status and concern for worsening oxygenation. He will be continued on vasopressor support to maintain a mean arterial pressure at or above 65 mmHg. 3. Encephalopathy Clinical concern for anoxic brain injury. CT head did reveal findings concerning anoxic injury. Plan to continue current supportive measures for the next 48 to 72 hours. Will consider MRI brain when clinically appropriate. 4. Acute kidney injury/acute liver injury/hyperkalemia Likely secondary to acute presentation including respiratory failure due to overdose and ensuing sepsis. As noted above, plan to continue supportive measures. Continue to monitor liver and renal function. 5. History of heroin dependency Complicates care, management, recovery and prognosis. Continue supportive measures as noted above. Prognosis is overall quite poor. TIME: 36 minutes of critical care time, independent of procedures, was spent addressing the patient's acute combined respiratory failure, septic shock, encephalopathy, acute kidney injury, acute liver injury, review of all data and collaboration with the care team. Subjective Subjective The patient was seen and examined at the bedside this morning. Events from the last 24 hours have been reviewed. Today is vent day #2. The patient remains on assist control mode of mechanical ventilation with an FiO2 requirement of 100% and PEEP of 12. The patient remains febrile with a temperature of 105 ?F. He remains on Levophed at 23 mcg/min to maintain hemodynamic stability. The patient remains neurologically unchanged from yesterday. He is currently documented to be overall net +3 L for the hospitalization. White count is elevated this morning at 14,000. Potassium is elevated at 5.5 with a chloride of 110, bicarbonate of 20 and creatinine of 4.49. The patient was also hypoglycemic this morning. Objective Data Objective Data The patient's most recent lab work, culture data and imaging studies have all been personally reviewed. Blood, urine and sputum cultures are pending. CT head dated August 14 revealed findings suggestive of anoxic brain injury. Vital Signs: Vital Signs Temp Pulse Resp BP Pulse Ox 105 F H 138 H 36 H 90/62 95 08/15/21 05:01 08/15/21 05:01 08/15/21 05:01 08/15/21 05:30 08/15/21 05:01 Oxygen Delivery Method Mechanical Ventilator Weight: 123.7 kg Body Mass Index (BMI) 36.9 Intake & Output: Intake and Output for Last 24 Hours 08/13/21 08/14/21 08/15/21 23:59 23:59 23:59 Intake Total 4052.77 / 4100.27 578.76 / 578.76 Output Total 1350 / 1350 0 / 0 Balance 2702.77 / 2750.27 578.76 / 578.76 Lab / Micro Data Attestation: I reviewed the patient's lab results. Result Diagrams: 08/15/21 02:28 08/15/21 02:28 Labs: Laboratory Results - last 24 hr 08/14/21 08:50: Urine Opiates Screen NEGATIVE, Urine Methadone Screen NEGATIVE, Ur Barbiturates Screen NEGATIVE, Ur Phencyclidine Scrn NEGATIVE, Ur Amphetamines Screen POSITIVE H, MDMA (Ecstasy) Screen NEGATIVE, U Benzodiazepines Scrn NEGATIVE, Urine Cocaine Screen NEGATIVE, U Cannabinoids Screen NEGATIVE, Ur Drug Screen Comment 08/14/21 08:50: Urine Color Yellow, Urine Clarity Sl. Cloudy, Urine pH 6.0, Ur Specific [place] 1.015, Urine Protein 100 H, Urine Glucose (UA) Normal, Urine Ketones Negative, Urine Occult Blood 250 H, Urine Nitrite Negative, Urine Bilirubin Negative, Urine Urobilinogen Normal, Ur Leukocyte Esterase Negative, Urine RBC 5-10 SEEN, Urine WBC 0 SEEN, Ur Squamous Epith Cells 0 SEEN, Urine Bacteria 0 SEEN, Urine Mucus 0 SEEN 08/14/21 09:15: WBC 10.7, RBC 5.48, Hgb 18.3 H*, Hct 54.0, MCV 98.5 H, MCH 33.4 H, MCHC 33.9, RDW Std Deviation 43.8, RDW Coeff of [place] 12.1, Plt Count 273, MPV 8.7, Immature Gran % (Auto) 2.900 H, Neut % (Auto) 79.3 H, Lymph % (Auto) 9.7 L, [place] % (Auto) 6.8, Eos % (Auto) 0.3, Baso % (Auto) 1.0, Absolute Neuts (auto) 8.5 H, Absolute Lymphs (auto) 1.04, Nucleated RBC % 0.2, Differential Comment COMMENT, Diff Path Review May foll 08/14/21 09:15: Sodium Cancelled, Potassium Cancelled, Chloride Cancelled, Carbon Dioxide Cancelled, Anion Gap Cancelled, BUN Cancelled, Creatinine Cancelled, Estim Creat Clear Calc Cancelled, Est GFR (MDRD) Af Amer Cancelled, Est GFR (MDRD) Non-Af Cancelled, BUN/Creatinine Ratio Cancelled, Glucose Cancelled, Calcium Cancelled, Total Bilirubin Cancelled, AST Cancelled, ALT Cancelled, Alkaline Phosphatase Cancelled, Troponin I High Sens Cancelled, Total Protein Cancelled, Albumin Cancelled, Globulin Cancelled, Albumin/Globulin Ratio Cancelled 08/14/21 09:15: Lactic Acid 3.9 H* 08/14/21 09:15: Total Creatine Kinase Cancelled 08/14/21 12:30: PT 15.3 H, INR 1.3, APTT 37.1 H 08/14/21 12:30: Total Creatine Kinase 6634 H, Troponin I High Sens 336 H* 08/14/21 12:30: Sodium 140, Potassium 6.3 H*, Chloride 109 H, Carbon Dioxide 26.0, Anion Gap 5, BUN 26 H, Creatinine 2.21 H, Estim Creat Clear Calc 50.72, Est GFR (MDRD) Af Amer 44 L, Est GFR (MDRD) Non-Af 36 L, BUN/Creatinine Ratio 11.8, Glucose 50 L, Calcium 8.4 L, Total Bilirubin 1.30 H, AST 462 H, ALT 210 H, Alkaline Phosphatase 129 H, Total Protein 7.3, Albumin 3.3, Globulin 4.0, Albumin/Globulin Ratio 0.8 L 08/14/21 12:30: Lactic Acid 2.0 08/14/21 14:25: MRSA (PCR) Cancelled 08/14/21 14:25: MRSA (PCR) Negative 08/14/21 17:40: Sodium 143, Potassium 5.0, Chloride 111 H, Carbon Dioxide 25.0, Anion Gap 7, BUN 32 H, Creatinine 3.11 H, Estim Creat Clear Calc 36.04, Est GFR (MDRD) Af Amer 29 L, Est GFR (MDRD) Non-Af 24 L, BUN/Creatinine Ratio 10.3, Glucose 27 L*, Calcium 8.5, Total Bilirubin 1.20 H, AST 937 H, ALT 486 H, Alkaline Phosphatase 94, Total Protein 5.9 L, Albumin 2.8 L, Globulin 3.1, Albumin/Globulin Ratio 0.9 08/14/21 19:32: POC Glucose 96 08/15/21 02:13: POC Glucose 31 L* 08/15/21 02:28: WBC 14.1 H, RBC 5.09, Hgb 17.0 H, Hct 49.1, MCV 96.5 H, MCH 33.4 H, MCHC 34.6, RDW Std Deviation 44.4 H, RDW Coeff of [place] 12.5, Plt Count 297, MPV 9.7, Immature Gran % (Auto) 1.300 H, Neut % (Auto) 84.8 H, Lymph % (Auto) 7.6 L, [place] % (Auto) 5.4, Eos % (Auto) 0.0, Baso % (Auto) 0.9, Absolute Neuts (auto) 12.0 H, Absolute Lymphs (auto) 1.07, Nucleated RBC % 0.3 08/15/21 02:28: Sodium 141, Potassium 5.5 H, Chloride 110 H, Carbon Dioxide 20.0 L, Anion Gap 11, BUN 44 H, Creatinine 4.49 H, Estim Creat Clear Calc 24.96, Est GFR (MDRD) Af Amer 19 L, Est GFR (MDRD) Non-Af 16 L, BUN/Creatinine Ratio 9.8 L, Glucose 83, Calcium 8.4 L 08/15/21 03:11: POC Glucose 75 Micro: Microbiology 08/14/21 12:00 Sputum, Induced/Lukens Gram Stain - Final ABG Data ABG results: ABG 08/14/21 08/14/21 08/14/21 09:17 11:25 14:00 Specimen Type ART ART ART Sample Site R Radial L Brach L Brach pH 6.99 L* 7.12 L* 7.14 L* Bicarbonate Actual 22.7 25.1 23.8 Total CO2 26 28 26 Base Excess -9 L -4 L -5 L O2 Saturation 78 L 75 L 41 L O2 % 100 100 ABG pCO2 95.0 H* 78.1 H* 70.8 H* ABG pO2 66 L 55 L 31 L* Respiration Rate 14 18 O2 Delivery Device ET Tube ET Tube Vent Mode AC AC Tidal Volume 450 500 POC PEEP 12 12 Crit Call To/Read Back Yes Yes Blood Gas Notified Whom ADALGISA DIANA 08/14/21 17:50 Specimen Type ART Sample Site R Brach pH 7.20 L Bicarbonate Actual 22.7 Total CO2 25 Base Excess -5 L O2 Saturation 51 L O2 % 100 ABG pCO2 57.9 H ABG pO2 34 L* Respiration Rate 18 O2 Delivery Device ET Tube Vent Mode AC Tidal Volume 500 POC PEEP 12 Crit Call To/Read Back Yes Blood Gas Notified Whom TERELETSKY Radiography Diagnostic Testing: Radiology Impression Chest X-Ray 08/14/21 08:31 IMPRESSION: The support tubes are in good position. Bilateral airspace disease worse in the left hemithorax. Electronically Signed: Gm Robbins MD at 9:06 EDT , KUB X-Ray 08/14/21 08:32 IMPRESSION: The tip of the orogastric tube is in the fundal portion of the stomach. Electronically Signed: Gm Robbins MD at 9:05 EDT , Brain CT 08/14/21 08:33 IMPRESSION: Findings suggestive of anoxic brain injury. Electronically Signed: Gm Robbins MD at 10:53 EDT , Chest X-Ray 08/14/21 12:00 IMPRESSION: Bilateral airspace disease worse in the right hemithorax. Electronically Signed: Gm Robbins MD at 12:26 EDT , Chest X-Ray 08/14/21 14:15 IMPRESSION: Progressive bilateral airspace disease as compared to prior study. Electronically Signed: Gm Robbins MD at 14:28 EDT , Physical Exam Const General Appearance: in distress, ill appearing, intubated and patient mechanically ventilated Nutritional Appearance: obese HEENT normocephalic and head/scalp atraumatic Mouth: endotracheal tube in place and OG tube in place Eyes Eyes Narrative: No pupillary reflex noted this morning. Neck supple General: trachea midline and CVC in place Chest inspection of chest normal Resp Resp Narrative: The patient continues to over breathe the set rate on the ventilator. Effort and Inspection: tachypneic and labored Auscultation: diminished lung sounds Cardio S1 normal heart sound and S2 normal heart sound Rate: tachycardic GI normal to inspection, nondistended, normoactive bowel sounds Extremity no clubbing, cyanosis or edema Skin no rashes or lesions noted Neuro Neuro Narrative: No gag was noted this morning on my examination. The patient remains unresponsive to painful stimulation. Charges/Coding Procedures Hospitalists Procedures: [id number] [facility] Care 1st Hr
--- NOTE | 2021-08-15 06:39 | RAD_ITS ---
STUDY: X-RAY CHEST REASON FOR EXAM: Male, 36 years old. Hypoxia. Respiratory failure. TECHNIQUE: AP COMPARISON: 08/14/2021 at 2:01 PM FINDINGS: Endotracheal and partially visible enteric tubes, right IJ catheter remain in place. No apparent pneumothorax. Multifocal bilateral airspace disease again demonstrated but decreased compared to prior. Heart size remains normal. RAD/Chest 1 View (Portable) IMPRESSION: Multifocal bilateral airspace disease has decreased but not resolved. Electronically Signed: Joseph Carreon MD at 7:47 EDT ,
[2021-08-15 06:57] LABS: Blood Gas Specimen Type ART
[2021-08-15] MEDS: Dextrose 5%-Lactated Ringers 1,000 ML 125 ML IV ×2 (07:06→15:04)
[2021-08-15 07:33] LABS: AST(SGOT) 4504 U/L (15-37); Alanine Aminotransfer ALT/SGPT 2425 U/L (16-61); Albumin, Serum 2.7 g/dL (3.2-5.0); Alkaline Phosphatase 73 U/L (45-117); Bilirubin, Direct 1.27 mg/dL (0.00-0.30); Globulin 3.4 g/dL (2.2-4.2); Protein, Total 6.1 g/dL (6.4-8.2)
[2021-08-15 07:35] LABS: Bedside Glucose 54 mg/dL (74-106)
[2021-08-15 07:35] LABS: International Normalized Ratio 1.7; Prothrombin Time (Protime)PT. 19.5 SECONDS (11.7-14.9)
[2021-08-15 07:36] LABS: Partial Thromboplast Time 36.6 Seconds (24.1-36.2)
[2021-08-15 08:11] LABS: Bedside Glucose 100 mg/dL (74-106)
--- NOTE | 2021-08-15 08:46 | PN.HOSP_ITS ---
Subjective Subjective Patient was seen and examined today, his sedation was turned off today, he remains on 100% O2, critical care increase the patient's PEEP settings today. Patient is now on 2 different pressor agents. Objective Data Objective Data Vital Signs: Vital Signs Temp Pulse Resp BP Pulse Ox 104.8 F H 142 H 35 H 125/69 H 86 08/15/21 08:00 08/15/21 08:00 08/15/21 08:00 08/15/21 08:00 08/15/21 08:00 Oxygen Delivery Method Mechanical Ventilator Weight: 123.7 kg Body Mass Index (BMI) 36.9 Intake & Output: Intake and Output for Last 24 Hours 08/13/21 08/14/21 08/15/21 23:59 23:59 23:59 Intake Total 4052.77 / 4100.27 1088.59 / 1088.59 Output Total 1350 / 1350 360 / 360 Balance 2702.77 / 2750.27 728.59 / 728.59 Lab / Micro Data Result Diagrams: 08/15/21 02:28 08/15/21 02:28 Labs: Laboratory Results - last 24 hr 08/14/21 08:50: Urine Opiates Screen NEGATIVE, Urine Methadone Screen NEGATIVE, Ur Barbiturates Screen NEGATIVE, Ur Phencyclidine Scrn NEGATIVE, Ur Amphetamines Screen POSITIVE H, MDMA (Ecstasy) Screen NEGATIVE, U Benzodiazepines Scrn NEGATIVE, Urine Cocaine Screen NEGATIVE, U Cannabinoids Screen NEGATIVE, Ur Drug Screen Comment 08/14/21 08:50: Urine Color Yellow, Urine Clarity Sl. Cloudy, Urine pH 6.0, Ur Specific [place] 1.015, Urine Protein 100 H, Urine Glucose (UA) Normal, Urine Ketones Negative, Urine Occult Blood 250 H, Urine Nitrite Negative, Urine Bilirubin Negative, Urine Urobilinogen Normal, Ur Leukocyte Esterase Negative, Urine RBC 5-10 SEEN, Urine WBC 0 SEEN, Ur Squamous Epith Cells 0 SEEN, Urine Bacteria 0 SEEN, Urine Mucus 0 SEEN 08/14/21 09:15: WBC 10.7, RBC 5.48, Hgb 18.3 H*, Hct 54.0, MCV 98.5 H, MCH 33.4 H, MCHC 33.9, RDW Std Deviation 43.8, RDW Coeff of [place] 12.1, Plt Count 273, MPV 8.7, Immature Gran % (Auto) 2.900 H, Neut % (Auto) 79.3 H, Lymph % (Auto) 9.7 L, [place] % (Auto) 6.8, Eos % (Auto) 0.3, Baso % (Auto) 1.0, Absolute Neuts (auto) 8.5 H, Absolute Lymphs (auto) 1.04, Nucleated RBC % 0.2, Differential Comment COMMENT, Diff Path Review September foll 08/14/21 09:15: Sodium Cancelled, Potassium Cancelled, Chloride Cancelled, Carbon Dioxide Cancelled, Anion Gap Cancelled, BUN Cancelled, Creatinine Cancelled, Estim Creat Clear Calc Cancelled, Est GFR (MDRD) Af Amer Cancelled, Est GFR (MDRD) Non-Af Cancelled, BUN/Creatinine Ratio Cancelled, Glucose Cancelled, Calcium Cancelled, Total Bilirubin Cancelled, AST Cancelled, ALT Cancelled, Alkaline Phosphatase Cancelled, Troponin I High Sens Cancelled, Total Protein Cancelled, Albumin Cancelled, Globulin Cancelled, Albumin/Globulin Ratio Cancelled 08/14/21 09:15: Lactic Acid 3.9 H* 08/14/21 09:15: Total Creatine Kinase Cancelled 08/14/21 12:30: PT 15.3 H, INR 1.3, APTT 37.1 H 08/14/21 12:30: Total Creatine Kinase 6634 H, Troponin I High Sens 336 H* 08/14/21 12:30: Sodium 140, Potassium 6.3 H*, Chloride 109 H, Carbon Dioxide 26.0, Anion Gap 5, BUN 26 H, Creatinine 2.21 H, Estim Creat Clear Calc 50.72, Est GFR (MDRD) Af Amer 44 L, Est GFR (MDRD) Non-Af 36 L, BUN/Creatinine Ratio 11.8, Glucose 50 L, Calcium 8.4 L, Total Bilirubin 1.30 H, AST 462 H, ALT 210 H, Alkaline Phosphatase 129 H, Total Protein 7.3, Albumin 3.3, Globulin 4.0, Albumin/Globulin Ratio 0.8 L 08/14/21 12:30: Lactic Acid 2.0 08/14/21 14:25: MRSA (PCR) Cancelled 08/14/21 14:25: MRSA (PCR) Negative 08/14/21 17:40: Sodium 143, Potassium 5.0, Chloride 111 H, Carbon Dioxide 25.0, Anion Gap 7, BUN 32 H, Creatinine 3.11 H, Estim Creat Clear Calc 36.04, Est GFR (MDRD) Af Amer 29 L, Est GFR (MDRD) Non-Af 24 L, BUN/Creatinine Ratio 10.3, Glucose 27 L*, Calcium 8.5, Total Bilirubin 1.20 H, AST 937 H, ALT 486 H, Alkaline Phosphatase 94, Total Protein 5.9 L, Albumin 2.8 L, Globulin 3.1, Alb umin/Globulin Ratio 0.9 08/14/21 19:32: POC Glucose 96 08/15/21 02:13: POC Glucose 31 L* 08/15/21 02:28: WBC 14.1 H, RBC 5.09, Hgb 17.0 H, Hct 49.1, MCV 96.5 H, MCH 33.4 H, MCHC 34.6, RDW Std Deviation 44.4 H, RDW Coeff of [place] 12.5, Plt Count 297, MPV 9.7, Immature Gran % (Auto) 1.300 H, Neut % (Auto) 84.8 H, Lymph % (Auto) 7.6 L, [place] % (Auto) 5.4, Eos % (Auto) 0.0, Baso % (Auto) 0.9, Absolute Neuts (auto) 12.0 H, Absolute Lymphs (auto) 1.07, Nucleated RBC % 0.3 08/15/21 02:28: Sodium 141, Potassium 5.5 H, Chloride 110 H, Carbon Dioxide 20.0 L, Anion Gap 11, BUN 44 H, Creatinine 4.49 H, Estim Creat Clear Calc 24.96, Est GFR (MDRD) Af Amer 19 L, Est GFR (MDRD) Non-Af 16 L, BUN/Creatinine Ratio 9.8 L, Glucose 83, Calcium 8.4 L 08/15/21 03:11: POC Glucose 75 08/15/21 06:50: PT 19.5 H, INR 1.7, APTT 36.6 H 08/15/21 06:50: Total Bilirubin 1.90 H, Direct Bilirubin 1.27 H, AST 4504 H, ALT 2425 H, Alkaline Phosphatase 73, Total Protein 6.1 L, Albumin 2.7 L, Globulin 3.4 08/15/21 07:21: POC Glucose 54 L 08/15/21 08:03: POC Glucose 100 Micro: Microbiology 08/14/21 12:00 Sputum, Induced/[place]uk[place] Gram Stain - Final ABG Data ABG results: ABG 08/14/21 08/14/21 08/14/21 09:17 11:25 14:00 Specimen Type ART ART ART Sample Site R Radial L Brach L Brach pH 6.99 L* 7.12 L* 7.14 L* Bicarbonate Actual 22.7 25.1 23.8 Total CO2 26 28 26 Base Excess -9 L -4 L -5 L O2 Saturation 78 L 75 L 41 L O2 % 100 100 ABG pCO2 95.0 H* 78.1 H* 70.8 H* ABG pO2 66 L 55 L 31 L* Respiration Rate 14 18 O2 Delivery Device ET Tube ET Tube Vent Mode AC AC Tidal Volume 450 500 POC PEEP 12 12 Crit Call To/Read Back Yes Yes Blood Gas Notified Whom ADALGISA DIANA 08/14/21 17:50 Specimen Type ART Sample Site R Brach pH 7.20 L Bicarbonate Actual 22.7 Total CO2 25 Base Excess -5 L O2 Saturation 51 L O2 % 100 ABG pCO2 57.9 H ABG pO2 34 L* Respiration Rate 18 O2 Delivery Device ET Tube Vent Mode AC Tidal Volume 500 POC PEEP 12 Crit Call To/Read Back Yes Blood Gas Notified Whom TERELETSKY Radiography Diagnostic Testing: Radiology Impression Chest X-Ray 08/14/21 08:31 IMPRESSION: The support tubes are in good position. Bilateral airspace disease worse in the left hemithorax. Electronically Signed: Gm Robbins MD at 9:06 EDT , KUB X-Ray 08/14/21 08:32 IMPRESSION: The tip of the orogastric tube is in the fundal portion of the stomach. Electronically Signed: Gm Robbins MD at 9:05 EDT , Brain CT 08/14/21 08:33 IMPRESSION: Findings suggestive of anoxic brain injury. Electronically Signed: Gm Robbins MD at 10:53 EDT , Chest X-Ray 08/14/21 12:00 IMPRESSION: Bilateral airspace disease worse in the right hemithorax. Electronically Signed: Gm Robbins MD at 12:26 EDT , Chest X-Ray 08/14/21 14:15 IMPRESSION: Progressive bilateral airspace disease as compared to prior study. Electronically Signed: Gm Robbins MD at 14:28 EDT , Chest X-Ray 08/15/21 06:39 IMPRESSION: Multifocal bilateral airspace disease has decreased but not resolved. Electronically Signed: Joseph Carreon MD at 7:47 EDT Reading Location ID and State: [address] [place] [address] Tel , Service support , Physical Exam Narrative Patient unresponsive and on the ventilator HEENT head/scalp atraumatic Head and Scalp: normocephalic Eyes Eyes Narrative: Pupils are pinpoint and nonreactive Neck no JVD Resp Resp Narrative: Patient is exhibiting rapid shallow respirations Cardio regular rate, regular rhythm, S1 normal heart sound, S2 normal heart sound and no clicks GI normal to inspection, nondistended, normoactive bowel sounds Extremity normal to inspection Skin no rashes or lesions noted and no wounds Neuro Neuro Narrative: Patient is comatose on the ventilator at this time, he does not respond to painful stimuli or verbal cues Psych Psych Narrative: Patient is comatose and on the ventilator at this time Assessment & Plan Assessment/Plan (1) Acute respiratory failure: PLAN: 1. Acute combined respiratory failure secondary to suspected unintentional drug overdose-patient's overall status remains poor at this time, he is on 100% oxygen and his PEEP setting is 15. I suspect patient will further decline over the next several days, family will come in today, it is unknown whether they will want care withdrawn. #2 Cardiac arrest-patient had a short episode of cardiac arrest while in the ER, chest compressions were performed and he got return of pulse. #3 probable drug overdose-exact drug not known at this time, continue supportive care at this time, prognosis remains poor #4 aspiration pneumonia/pneumonitis with probable ARDS-patient will be maintained on vancomycin and Zosyn, pulmonary is participating in his care, patient's vent settings were adjusted by pulmonary medicine #5+ tox screen for amphetamines-supportive care will be given #6 acute septic shock-patient is now on pressor agents, prognosis remains poor, patient's temperature remains elevated #7 acute kidney injury-complicates care and recovery, IV fluids will be administered, labs will be monitored #8 hyperkalemia-labs will be monitored #9 probable anoxic brain injury-patient's CT of the brain showed findings suggestive of anoxic brain injury-prognosis remains poor, patient is a DNR CC arrest no intubation #10 acute renal failure-patient's creatinine has worsened today-it is 4.49, this bodes for a poor prognosis #11 shock liver-patient's liver functions are all elevated in keeping with shock liver, supportive care is being given at this time #12 elevated troponin-possible non-STEMI, supportive care will be given at this point, patient is not a candidate for any cardiac work-up at this time Charges/Coding Visit Charges Inpatient E&M: 99283 Subs Hosp L2
[2021-08-15] MEDS: Chlorhexidine 15 ML PO ×2 (09:22→23:21)
[2021-08-15] MEDS: Norepinephrine 16 mg/250 mL 0.9% NS 28.1 MG CONT INF ×2 (09:25→18:46)
[2021-08-15 10:06] LABS: Bedside Glucose 104 mg/dL (74-106)
[2021-08-15 11:48] LABS: Pathologist Review Reviewed
[2021-08-15 13:10] LABS: Bedside Glucose 86 mg/dL (74-106)
--- NOTE | 2021-08-15 15:45 | CHAPLAIN ---
Type of Pastoral Visit ___ Initial Visit _x__ Follow-up Visit ___ On-call Visit ___ General Patient Visit ___ Spiritual Assessment ___ Family Conference ___ Bereavement ___ Rapid Response ___ Code Blue ___ Other (describe below) Pastoral Care Referral From ___ Patient _x__ Family ___ Nurse ___ Physician ___ Job Hand ___ Malted Milk Supervisor ___ Other (describe below) Sacrament/Intervention ___ Active listening ___ Anointing ___ Catholic ___ Bereavement ___ Communion ___ Evette exploration ___ ___ Life review ___ Prayer ___ Reconciliation ___ Sacrament of Sick _x__ Supportive presence ___ Wedding ___ Other (describe below) Pastoral Comments father and grandfather present in room at this time; no change for patient apparently; offer of support; stayed at bedside to console family
[2021-08-15 17:51] LABS: Bedside Glucose 103 mg/dL (74-106)
[2021-08-15 22:15] LABS: Vancomycin, Trough Level > 50.0 ug/mL (5.0-15.0)
[2021-08-15 22:36] LABS: Bedside Glucose 109 mg/dL (74-106)
[2021-08-16] VITALS (54 sets, daily range): BP systolic 94–152; BP diastolic 52–82; PULSE 112–136; RESP 18–38; TEMP 38.4–39.7; O2SAT 85–100
[2021-08-16] MEDS: Dextrose 5%-Lactated Ringers 1,000 ML 125 ML IV ×3 (01:18→19:10)
[2021-08-16] MEDS: Acetaminophen 650 MG Suppository RC (02:26)
[2021-08-16 02:49] LABS: Mucous, Urine 0 SEEN /hpf (<or=2+)
[2021-08-16 02:51] LABS: Color, Urine Yellow (Yellow); Glucose, Dipstick 50 mg/dl (Normal); Ketone-Dipstick 5 mg/dl (Negative); Leukocyte Esterase-Dipstick 100 /ul (Negative); Nitrite-Dipstick Negative (Negative); Occult Blood-Urine 250 /ul (Negative); Protein-Dipstick 100 mg/dl (Negative); Specific Gravity, Urine 1.015 (1.002-1.030); Urine Bilirubin Dipstick Negative (Negative); Urine Clarity Sl Cloudy (Clear); Urine Urobilinogen Normal (Normal)
[2021-08-16 02:57] LABS: Renal Epithelial Cells 5-10 SEEN /hpf (0-5); Squamous Epithelial Cells - UA 5-10 SEEN /hpf (0-5); White Blood Cells 50-100 SEEN /hpf (0-5)
[2021-08-16 02:58] LABS: Amorphous Sediment 1+; Bacteria 3+ /hpf (None Seen); Red Blood Cells-Urine > 100 SEEN /hpf (0-5)
[2021-08-16] MEDS: Norepinephrine 16 mg/250 mL 0.9% NS 28.1 MG CONT INF ×2 (04:19→14:01)
[2021-08-16 04:53] LABS: Hemoglobin 15.1 g/dL (13.0-16.5); Mean Corp Hgb Conc 35.1 g/dL (32-36); Mean Corpuscular Hgb 34.2 pg (27.0-32.0); Mean Corpuscular Volume 97.5 fL (80-94); POSITIVE DIFFERENTIAL YES; POSITIVE MORPHOLOGY YES; Platelet Count 206 K/mm3 (150-450); RBC Distribution Width CV 13.1 % (11.6-14.6); RBC Distribution Width SD 47.1 fl (35.1-43.9); Red Blood Count 4.41 M/mm3 (4.6-6.2); White Blood Count 26.2 K/mm3 (4.4-11.0)
[2021-08-16 05:08] LABS: Anion Gap 10 (5-15); BUN 78 mg/dL (7-18); BUN/Creat Ratio 9.5 RATIO (10-20); Calcium,Total 6.6 mg/dL (8.5-10.1); Chloride 110 mmol/L (98-107); Creatinine, Serum 8.21 mg/dL (0.70-1.30); EST Glomerular Filtration Rate 8 mL/min (>60); Est Glom Filt Rate - Afr Amer 10 mL/min (>60); Estimated Creatinine Clearance 13.65 ml/min; Glucose 133 mg/dL (74-106); Potassium 6.9 mmol/L (3.5-5.1); Sodium Level 140 mmol/L (136-145)
[2021-08-16 05:10] LABS: Differential Indicated MANUAL DIFF
[2021-08-16 05:16] LABS: Bedside Glucose 125 mg/dL (74-106)
[2021-08-16 05:17] LABS: Lymphocyte 11 % (19-41); Metamyelocyte 15 % (0-1); Monocyte 2 % (0-10); Neutrophil-Band 16 % (0-5); Neutrophil-Segmented 56 % (47-70); Nucleated Red Bld Cells,Manual 2 % (0-5); Total Cells Counted 100 (MANUAL DIFF)
[2021-08-16 05:19] LABS: Platelet Estimate ADEQUATE (ADEQ); Red Cell Morphology NORM C+C NORMAL (NORM C&C)
--- NOTE | 2021-08-16 05:45 | PCM.PN.INT ---
Assessment & Plan Assessment/Plan (1) Acute respiratory failure: PLAN: RECOMMENDATIONS: 1. Continue assist control mode mechanical ventilation. Wean FiO2/PEEP for saturations greater than 90%. 2. Continue vasopressor support to maintain a mean arterial pressure at or above 65 mmHg. 3. Medical management of hyperkalemia. 4. Continue broad-spectrum antimicrobials. 5. Continue dextrose containing fluids. 6. Continue appropriate prophylaxis. 7. Ongoing goals of care discussion with the patient's family. [facility] is following. IMPRESSIONS: 1. Acute combined respiratory failure The patient presented to the hospital in an unresponsive/encephalopathic state, following a suspected overdose, and was emergently intubated in the emergency department. He did have a [place] aspiration event at that time and subsequently went on to develop significant bilateral infiltrates and increased oxygen demand consistent with ARDS. The patient will be continued on assist control mode mechanical ventilation. FiO2 and PEEP will be weaned as tolerated. Continue broad-spectrum antimicrobials. 2. Septic shock The patient presented with sepsis due to [place] aspiration pneumonia with acute sepsis related organ dysfunction as evidenced by hypotension, acute respiratory failure requiring invasive mechanical ventilatory support and lactic acidemia. Nevertheless, the patient's multisystem organ failure and lactic acidemia could also certainly be attributable to his overdose and prolonged downtime. However, the patient is febrile with extensive bilateral infiltrates. Therefore, he will be continued on broad-spectrum antimicrobials, as ordered. The patient will not receive the full sepsis fluid protocol of 30 cc/kg, given his tenuous respiratory status and concern for worsening oxygenation. He will be continued on vasopressor support to maintain a mean arterial pressure at or above 65 mmHg. 3. Encephalopathy Clinical concern for anoxic brain injury. CT head did reveal findings concerning anoxic injury. Plan to continue current supportive measures, with ongoing goals of care discussion with the family. 4. Acute kidney injury/acute liver injury/hyperkalemia Likely secondary to acute presentation including respiratory failure due to overdose and ensuing sepsis. As noted above, plan to continue supportive measures. Continue to monitor liver and renal function. Continue medical management of hyperkalemia. 5. History of heroin dependency Complicates care, management, recovery and prognosis. Continue supportive measures as noted above. Prognosis is overall quite poor. TIME: 34 minutes of critical care time, independent of procedures, was spent addressing the patient's acute combined respiratory failure, septic shock, encephalopathy, acute kidney injury, acute liver injury, review of all data and collaboration with the care team. Subjective Subjective The patient was seen and examined at the bedside this morning. Events from the last 24 hours have been reviewed. The patient has remained febrile with a temperature this morning documented to be 103.2 ?F. He remains tachycardic, tachypneic and hemodynamically unstable, requiring vasopressor support. The patient is currently documented to be overall net +6.5 L for the hospitalization. White count this morning is elevated at 26,000. Chemistry profile revealed a potassium of 6.9 with a chloride of 110, bicarbonate of 20, BUN of 78 and creatinine of 8.2. The patient remains neurologically unchanged from previous. Objective Data Objective Data The patient's most recent lab work, culture data and imaging studies have all been personally reviewed. Blood, urine and sputum cultures are pending. CT head dated August 14 revealed findings suggestive of anoxic brain injury. Vital Signs: Vital Signs Temp Pulse Resp BP Pulse Ox 103.2 F H 127 H 33 H 104/54 L 96 08/16/21 04:00 08/16/21 04:00 08/16/21 04:00 08/16/21 04:00 08/16/21 04:00 Oxygen Delivery Method Mechanical Ventilator Weight: 123.7 kg Body Mass Index (BMI) 36.9 Intake & Output: Intake and Output for Last 24 Hours 08/14/21 08/15/21 08/16/21 23:59 23:59 23:59 Intake Total 4052.77 / 4100.27 3321.25 / 3360.60 1387.29 / 1387.29 Output Total 1350 / 1350 885 / 885 15 / 15 Balance 2702.77 / 2750.27 2436.25 / 2475.60 1372.29 / 1372.29 Lab / Micro Data Attestation: I reviewed the patient's lab results. Result Diagrams: 08/16/21 04:45 08/16/21 04:45 Labs: Laboratory Results - last 24 hr 08/14/21 09:15: Diff Path Review Reviewed 08/15/21 06:50: PT 19.5 H, INR 1.7, APTT 36.6 H 08/15/21 06:50: Total Bilirubin 1.90 H, Direct Bilirubin 1.27 H, AST 4504 H, ALT 2425 H, Alkaline Phosphatase 73, Total Protein 6.1 L, Albumin 2.7 L, Globulin 3.4 08/15/21 07:21: POC Glucose 54 L 08/15/21 08:03: POC Glucose 100 08/15/21 09:57: POC Glucose 104 08/15/21 13:02: POC Glucose 86 08/15/21 17:20: COVID-19 ([facility]) Not Detected 08/15/21 17:26: POC Glucose 103 08/15/21 18:20: Blood Type O POSITIVE, Antibody Screen NEGATIVE 08/15/21 20:35: Vancomycin Trough > 50.0 H 08/15/21 22:22: POC Glucose 109 H 08/16/21 02:35: Urine Color Yellow, Urine Clarity Sl Cloudy, Urine pH 5.0, Ur Specific [place] 1.015, Urine Protein 100 H, Urine Glucose (UA) 50 H, Urine Ketones 5 H, Urine Occult Blood 250 H, Urine Nitrite Negative, Urine Bilirubin Negative, Urine Urobilinogen Normal, Ur Leukocyte Esterase 100 H, Urine RBC > 100 SEEN, Urine WBC 50-100 SEEN, Ur Squamous Epith Cells 5-10 SEEN, Ur Renal Epithelial Cell 5-10 SEEN, Amorphous Sediment 1+, Urine Bacteria 3+, Urine Mucus 0 SEEN 08/16/21 04:00: WBC Cancelled, Corrected WBC Cancelled, RBC Cancelled, Hgb Cancelled, Hct Cancelled, MCV Cancelled, MCH Cancelled, MCHC Cancelled, RDW Std Deviation Cancelled, RDW Coeff of Alphonse Cancelled, Plt Count Cancelled, MPV Cancelled, Immature Gran % (Auto) Cancelled, Neut % (Auto) Cancelled, Lymph % (Auto) Cancelled, [place] % (Auto) Cancelled, Eos % (Auto) Cancelled, Baso % (Auto) Cancelled, Absolute Neuts (auto) Cancelled, Absolute Lymphs (auto) Cancelled, Total Counted Cancelled, Neutrophils % (Manual) Cancelled, Band Neutrophils % Cancelled, Lymphocytes % (Manual) Cancelled, Monocytes % (Manual) Cancelled, Eosinophils % (Manual) Cancelled, Basophils % (Manual) Cancelled, Metamyelocytes % Cancelled, Myelocytes % Cancelled, Promyelocytes % Cancelled, Blast Cells % Cancelled, Plasma Cell % (Manual) Cancelled, Other Cells % Cancelled, Nucleated RBC % Cancelled, Nucleated RBCs/100 WBC Cancelled, Differential Comment Cancelled, Diff Path Review Cancelled, Hypersegmented Neuts Cancelled, Atypical Lymphocytes Cancelled, Reactive Lymphocytes Cancelled, Smudge Cells Cancelled, Toxic Granulation Cancelled, Toxic Vacuolation Cancelled, Dohle Bodies Cancelled, Gaivn Rods Cancelled, Platelet Estimate Cancelled, Plt Morphology Comment Cancelled, RBC Morphology Cancelled, Polychromasia Cancelled, Hypochromasia Cancelled, Poikilocytosis Cancelled, Basophilic Stippling Cancelled, Anisocytosis Cancelled, Microcytosis Cancelled, Macrocytosis Cancelled, Spherocytes Cancelled, Sickle Cells Cancelled, Target Cells Cancelled, Tear Drop Cells Cancelled, Ovalocytes Cancelled, Stomatocytes Cancelled, Raya-[place] Bodies Cancelled, [place] Cells Cancelled, Bite Cells Cancelled, Crenated Cell Cancelled, Acanthocytes (Spur) Cancelled, Rouleaux Cancelled, Schistocytes Cancelled 08/16/21 04:00: Sodium Cancelled, Potassium Cancelled, Chloride Cancelled, Carbon Dioxide Cancelled, Anion Gap Cancelled, BUN Cancelled, Creatinine Cancelled, Estim Creat Clear Calc Cancelled, Est GFR (MDRD) Af Amer Cancelled, Est GFR (MDRD) Non-Af Cancelled, BUN/Creatinine Ratio Cancelled, Glucose Cancelled, Calcium Cancelled 08/16/21 04:45: Sodium 140, Potassium 6.9 H*, Chloride 110 H, Carbon Dioxide 20.0 L, Anion Gap 10, BUN 78 H, Creatinine 8.21 H*, Estim Creat Clear Calc 13.65, Est GFR (MDRD) Af Amer 10 L, Est GFR (MDRD) Non-Af 8 L, BUN/Creatinine Ratio 9.5 L, Glucose 133 H, Calcium 6.6 L 08/16/21 04:45: WBC 26.2 H, RBC 4.41 L, Hgb 15.1, Hct 43.0, MCV 97.5 H, MCH 34.2 H, MCHC 35.1, RDW Std Deviation 47.1 H, RDW Coeff of Alphonse 13.1, Plt Count 206, MPV 10.0, Neut % (Auto) Not Reportable, Total Counted 100, Neutrophils % (Manual) 56, Band Neutrophils % 16 H, Lymphocytes % (Manual) 11 L, Monocytes % (Manual) 2, Metamyelocytes % 15 H, Nucleated RBCs/100 WBC 2, Diff Path Review May foll, Platelet Estimate ADEQUATE, RBC Morphology NORM C+C 08/16/21 05:11: POC Glucose 125 H Micro: Microbiology 08/14/21 08:50 Urine Catheter - Lopez Urine Culture - Preliminary Culture exhibits no growth. 08/14/21 12:00 Sputum, Induced/Lukens Gram Stain - Final ABG Data ABG results: ABG 08/14/21 09:17 Specimen Type ART Sample Site R Radial pH 6.99 L* Bicarbonate Actual 22.7 Total CO2 26 Base Excess -9 L O2 Saturation 78 L ABG pCO2 95.0 H* ABG pO2 66 L Radiography Diagnostic Testing: Radiology Impression Chest X-Ray 08/14/21 14:15 IMPRESSION: Progressive bilateral airspace disease as compared to prior study. Electronically Signed: Gm Robbins MD at 14:28 EDT , Chest X-Ray 08/15/21 06:39 IMPRESSION: Multifocal bilateral airspace disease has decreased but not resolved. Electronically Signed: Joseph Carreon MD at 7:47 EDT , Physical Exam Const General Appearance: in distress, ill appearing, intubated and patient mechanically ventilated Nutritional Appearance: obese HEENT normocephalic and head/scalp atraumatic Mouth: endotracheal tube in place and OG tube in place Eyes Eyes Narrative: No pupillary reflex noted this morning. Neck supple General: trachea midline and CVC in place Chest inspection of chest normal Resp Resp Narrative: The patient continues to over breathe the set rate on the ventilator. Effort and Inspection: tachypneic and labored Auscultation: diminished lung sounds Cardio S1 normal heart sound and S2 normal heart sound Rate: tachycardic GI normal to inspection, nondistended, normoactive bowel sounds Extremity no clubbing, cyanosis or edema Skin no rashes or lesions noted Neuro Neuro Narrative: + gag. The patient remains unresponsive to painful stimulation. No purposeful movements noted. Charges/Coding Procedures Hospitalists Procedures: 80289 Critial Care 1st Hr
--- NOTE | 2021-08-16 05:53 | NURSING ---
No current sedation
[2021-08-16] MEDS: Piperacil/Tazobactam 3.375 GM/50 ML ML IV ×3 (06:20→21:00)
[2021-08-16] MEDS: Chlorhexidine 15 ML PO ×2 (08:10→21:00)
[2021-08-16] MEDS: Insulin Lispro 100 UNIT/ML INSULN.PEN 10 UNIT SC (09:08)
[2021-08-16] MEDS: Dextrose 10%-Water 250 ML 999 ML IV (09:10)
--- NOTE | 2021-08-16 11:45 | NURSING ---
Phoned lab, had them hold all initial laboratory work from ER as per hvac refrigeration technician's request.
[2021-08-16 14:41] LABS: Absolute Lymphocyte Count 2.88 X10^3/uL (0.83-4.51); Absolute Neutrophil Count 18.9 X10^3/uL (2.0-7.7); Lymphocyte # 2.88 X10^3/ul (0.83-4.51); Neutrophil # 18.86 X10^3/uL (2.7-7.7)
[2021-08-16] MEDS: LORazepam 2 MG/ML Syringe 1 MG IV ×2 (15:57→20:55)
--- NOTE | 2021-08-16 17:14 | PN.HOSP_ITS ---
Subjective Subjective Patient was seen and [facility] today, I talked with his family for a few minutes in the room today. Patient remains comatose labs reveal increasing creatinine, patient's white blood cell count is still elevated, patient's family decided against life bank today, they told me that they would make a decision tomorrow concerning withdrawing medical treatment. Objective Data Objective Data Vital Signs: Vital Signs Temp Pulse Resp BP Pulse Ox 103.3 F H 120 H 29 H 140/73 H 100 08/16/21 17:09 08/16/21 17:09 08/16/21 17:09 08/16/21 17:09 08/16/21 17:09 Oxygen Delivery Method Mechanical Ventilator Weight: 123.7 kg Body Mass Index (BMI) 36.9 Intake & Output: Intake and Output for Last 24 Hours 08/14/21 08/15/21 08/16/21 23:59 23:59 23:59 Intake Total 4052.77 / 4100.27 3321.25 / 3360.60 3948.34 / 3948.34 Output Total 1350 / 1350 885 / 885 Balance 2702.77 / 2750.27 2436.25 / 2475.60 3923.34 / 3923.34 Lab / Micro Data Result Diagrams: 08/16/21 04:45 08/16/21 04:45 Labs: Laboratory Results - last 24 hr 08/15/21 17:20: COVID-19 ([facility]) Not Detected 08/15/21 17:26: POC Glucose 103 08/15/21 18:20: Blood Type O POSITIVE, Antibody Screen NEGATIVE 08/15/21 20:35: Vancomycin Trough > 50.0 H 08/15/21 22:22: POC Glucose 109 H 08/16/21 02:35: Urine Color Yellow, Urine Clarity Sl Cloudy, Urine pH 5.0, Ur Specific [place] 1.015, Urine Protein 100 H, Urine Glucose (UA) 50 H, Urine Ketones 5 H, Urine Occult Blood 250 H, Urine Nitrite Negative, Urine Bilirubin Negative, Urine Urobilinogen Normal, Ur Leukocyte Esterase 100 H, Urine RBC > 100 SEEN, Urine WBC 50-100 SEEN, Ur Squamous Epith Cells 5-10 SEEN, Ur Renal Epithelial Cell 5-10 SEEN, Amorphous Sediment 1+, Urine Bacteria 3+, Urine Mucus 0 SEEN 08/16/21 04:00: WBC Cancelled, Corrected WBC Cancelled, RBC Cancelled, Hgb Cancelled, Hct Cancelled, MCV Cancelled, MCH Cancelled, MCHC Cancelled, RDW Std Deviation Cancelled, RDW Coeff of Alphonse Cancelled, Plt Count Cancelled, MPV Cance lled, Immature Gran % (Auto) Cancelled, Neut % (Auto) Cancelled, Lymph % (Auto) Cancelled, [place] % (Auto) Cancelled, Eos % (Auto) Cancelled, Baso % (Auto) Cancelled, Absolute Neuts (auto) Cancelled, Absolute Lymphs (auto) Cancelled, Total Counted Cancelled, Neutrophils % (Manual) Cancelled, Band Neutrophils % Cancelled, Lymphocytes % (Manual) Cancelled, Monocytes % (Manual) Cancelled, Eosinophils % (Manual) Cancelled, Basophils % (Manual) Cancelled, Metamyelocytes % Cancelled, Myelocytes % Cancelled, Promyelocytes % Cancelled, Blast Cells % Cancelled, Plasma Cell % (Manual) Cancelled, Other Cells % Cancelled, Nucleated RBC % Cancelled, Nucleated RBCs/100 WBC Cancelled, Differential Comment Ca ncelled, Diff Path Review Cancelled, Hypersegmented Neuts Cancelled, Atypical Lymphocytes Cancelled, Reactive Lymphocytes Cancelled, Smudge Cells Cancelled, Toxic Granulation Cancelled, Toxic Vacuolation Cancelled, Dohle Bodies Cancelled, Gavin Rods Cancelled, Platelet Estimate Cancelled, Plt Morphology Comment Cancelled, RBC Morphology Cancelled, Polychromasia Cancelled, Hypochromasia Cancelled, Poikilocytosis Cancelled, Basophilic Stippling Cancelled, Anisocytosis Cancelled, Microcytosis Cancelled, Macrocytosis Cancelled, Spherocytes Cancelled, Sickle Cells Cancelled, Target Cells Cancelled, Tear Drop Cells Cancelled, Ovalocytes Cancelled, Stomatocytes Cancelled, Raya-[place] Bodies Cancelled, [place] Cells Cancelled, Bite Cells Cancelled, Crenated Cell Cancelled, Acanthocytes (Spur) Cancelled, Rouleaux Cancelled, Schistocytes Cancelled 08/16/21 04:00: Sodium Cancelled, Potassium Cancelled, Chloride Cancelled, Carbon Dioxide Cancelled, Anion Gap Cancelled, BUN Cancelled, Creatinine Cancelled, Estim Creat Clear Calc Cancelled, Est GFR (MDRD) Af Amer Cancelled, Est GFR (MDRD) Non-Af Cancelled, BUN/Creatinine Ratio Cancelled, Glucose Cancelled, Calcium Cancelled 08/16/21 04:45: Sodium 140, Potassium 6.9 H*, Chloride 110 H, Carbon Dioxide 20.0 L, Anion Gap 10, BUN 78 H, Creatinine 8.21 H*, Estim Creat Clear Calc 13.65, Est GFR (MDRD) Af Amer 10 L, Est GFR (MDRD) Non-Af 8 L, BUN/Creatinine Ratio 9.5 L, Glucose 133 H, Calcium 6.6 L 08/16/21 04:45: WBC 26.2 H, RBC 4.41 L, Hgb 15.1, Hct 43.0, MCV 97.5 H, MCH 34.2 H, MCHC 35.1, RDW Std Deviation 47.1 H, RDW Coeff of [place]ph[place] 13.1, Plt Count 206, MPV 10.0, Neut % (Auto) Not Reportable, Absolute Neuts (auto) 18.9 H, Absolute Lymphs (auto) 2.88, Total Counted 100, Neutrophils % (Manual) 56, Band Neutrophils % 16 H, Lymphocytes % (Manual) 11 L, Monocytes % (Manual) 2, Metamyelocytes % 15 H, Nucleated RBCs/100 WBC 2, Diff Path Review September foll, Platelet Estimate ADEQUATE, RBC Morphology NORM C+C 08/16/21 05:11: POC Glucose 125 H Micro: Microbiology 08/14/21 12:30 Blood Culture (Wb) - Anticubital Right Blood Culture - Preliminary No growth in 48 hours. 08/14/21 08:50 Urine Catheter - Lopez Urine Culture - Final Culture exhibits no growth. 08/14/21 12:00 Sputum, Induced/Lukens Gram Stain - Final Physical Exam Narrative Patient unresponsive and on the ventilator HEENT head/scalp atraumatic Head and Scalp: normocephalic Eyes Eyes Narrative: Pupils are pinpoint and nonreactive Neck no JVD Resp Resp Narrative: Patient is exhibiting rapid shallow respirations Cardio regular rate, regular rhythm, S1 normal heart sound, S2 normal heart sound and no clicks, patient tachycardic GI normal to inspection, nondistended, normoactive bowel sounds Extremity normal to inspection Skin no rashes or lesions noted and no wounds Neuro Neuro Narrative: Patient is comatose on the ventilator at this time, he does not respond to painful stimuli or verbal cues Psych Psych Narrative: Patient is comatose and on the ventilator at this time Assessment & Plan Assessment/Plan (1) Acute respiratory failure: PLAN: 1. Acute combined respiratory failure secondary to suspected unintentional drug overdose-patient's overall status remains poor at this time, he is on 100% oxygen and high PEEP setting, I suspect patient will further decline over the next several hours, family is undecided whether to withdraw care at this time. #2 Cardiac arrest-patient had a short episode of cardiac arrest while in the ER, chest compressions were performed and he got return of pulse. #3 probable drug overdose-exact drug not known at this time, continue supportive care at this time, prognosis remains poor #4 aspiration pneumonia/pneumonitis with probable ARDS-patient will be maintained on vancomycin and Zosyn, pulmonary is participating in his care #5+ tox screen for amphetamines-supportive care will be given #6 acute septic shock-patient is now on pressor agents, prognosis remains poor, patient's temperature remains elevated #7 acute kidney injury-complicates care and recovery, IV fluids will be administered, labs will be monitored #8 hyperkalemia-labs will be monitored #9 probable anoxic brain injury-patient's CT of the brain showed findings suggestive of anoxic brain injury-prognosis remains poor, patient is a DNR CC arrest no intubation #10 acute renal failure-patient's creatinine has worsened today-it is 8.21, this bodes for a poor prognosis #11 shock liver-patient's liver functions are all elevated in keeping with shock liver, supportive care is being given at this time #12 elevated troponin-possible non-STEMI, supportive care will be given at this point, patient is not a candidate for any cardiac work-up at this time #13 multisystem organ failure-dismal prognosis Charges/Coding Visit Charges Inpatient E&M: 33409 Subs Hosp L2
[2021-08-16] MEDS: morphine 10 MG/ML Syringe IV (20:54)
[2021-08-16] MEDS: 0.9% Saline Lock 10 ML Syringe IV (20:58)
[2021-08-16 21:37] LABS: Vancomycin, Random Level > 50.0 ug/mL (0.0-15.0)
[2021-08-17] VITALS (26 sets, daily range): BP systolic 107–123; BP diastolic 61–71; PULSE 99–110; RESP 17–25; TEMP 37.1–38; O2SAT 85–99
[2021-08-17] MEDS: LORazepam 2 MG/ML Syringe 1 MG IV (02:21)
[2021-08-17] MEDS: morphine 10 MG/ML Syringe IV ×4 (02:21→20:22)
[2021-08-17] MEDS: Dextrose 5%-Lactated Ringers 1,000 ML 125 ML IV ×2 (03:10→10:39)
[2021-08-17 04:03] LABS: Absolute Lymphocyte Count 1.14 X10^3/uL (0.83-4.51); Absolute Neutrophil Count 16.6 X10^3/uL (2.0-7.7); Basophil# 0.02 X10^3/uL; Basophil% 0.1 % (0-1); Eosinophil# 0.02 X10^3/uL; Eosinophils% 0.1 % (0-5); Hematocrit 39.9 % (40-54); Hemoglobin 13.6 g/dL (13.0-16.5); Lymphocyte # 1.14 X10^3/ul (0.83-4.51); Lymphocyte % 6.1 % (19-41); Mean Corp Hgb Conc 34.1 g/dL (32-36); Mean Corpuscular Hgb 32.7 pg (27.0-32.0); Mean Corpuscular Volume 95.9 fL (80-94); Mean Platelet Vol. 9.8 fl (6.2-12.0); Monocyte# 0.98 X10^3/uL; Monocyte% 5.2 % (0-10); NRBC Flagged by Analyzer 0 % (0-5); Neutrophil # 16.58 X10^3/uL (2.7-7.7); Neutrophil % 88.1 % (47-70); POSITIVE MORPHOLOGY YES; Platelet Count 114 K/mm3 (150-450); RBC Distribution Width CV 13.2 % (11.6-14.6); RBC Distribution Width SD 47.6 fl (35.1-43.9); Red Blood Count 4.16 M/mm3 (4.6-6.2); White Blood Count 18.8 K/mm3 (4.4-11.0)
[2021-08-17 04:08] LABS: Differential Indicated SCAN CRITERIA MET
[2021-08-17 04:28] LABS: Anion Gap 8 (5-15); BUN 108 mg/dL (7-18); BUN/Creat Ratio 10.4 RATIO (10-20); Calcium,Total 6.9 mg/dL (8.5-10.1); Chloride 111 mmol/L (98-107); EST Glomerular Filtration Rate 6 mL/min (>60); Est Glom Filt Rate - Afr Amer 7 mL/min (>60); Estimated Creatinine Clearance 10.78 ml/min; Glucose 183 mg/dL (74-106); Potassium 6.2 mmol/L (3.5-5.1); Sodium Level 141 mmol/L (136-145)
[2021-08-17 04:29] LABS: Microcytosis 1+
[2021-08-17] MEDS: 0.9% Saline Lock 10 ML Syringe IV ×2 (05:31→17:40)
[2021-08-17] MEDS: Piperacil/Tazobactam 3.375 GM/50 ML ML IV (05:33)
--- NOTE | 2021-08-17 06:44 | PCM.PN.INT ---
Assessment & Plan Assessment/Plan (1) Acute respiratory failure: PLAN: RECOMMENDATIONS: 1. Continue assist control mode mechanical ventilation. Wean FiO2/PEEP for saturations greater than 90%. 2. Reinitiate vasopressor support if needed to maintain a mean arterial pressure at or above 65 mmHg. 3. Family discussion of dialysis versus palliative measures 4. Continue broad-spectrum antimicrobials. Hold vancomycin given renal failure 5. Continue dextrose containing fluids. 6. Continue appropriate prophylaxis. 7. Ongoing goals of care discussion with the patient's family. [facility] is following. IMPRESSIONS: 1. Acute combined respiratory failure secondary to ARDS secondary to aspiration pneumonia The patient presented to the hospital in an unresponsive/encephalopathic state, following a suspected overdose, and was emergently intubated in the emergency department. He did have a [place] aspiration event at that time and subsequently went on to develop significant bilateral infiltrates and increased oxygen demand consistent with ARDS. The patient will be continued on assist control mode mechanical ventilation. FiO2 and PEEP will be weaned as tolerated. Continue broad-spectrum antimicrobials. Vancomycin level is high, so will not be dosed. This will need to be addressed if patient receives dialysis 2. Septic shock Improving. The patient presented with sepsis due to [place] aspiration pneumonia with acute sepsis related organ dysfunction as evidenced by hypotension, acute respiratory failure requiring invasive mechanical ventilatory support and lactic acidemia. Nevertheless, the patient's multisystem organ failure and lactic acidemia could also certainly be attributable to his overdose and prolonged downtime. However, the patient is febrile with extensive bilateral infiltrates. Therefore, he will be continued on broad-spectrum antimicrobials, as ordered. The patient will not receive the full sepsis fluid protocol of 30 cc/kg, given his tenuous respiratory status and concern for worsening oxygenation. Patient is currently off of vasopressor support, but this can be reinitiated if necessary. 3. Encephalopathy Clinical concern for anoxic brain injury. CT head did reveal findings concerning anoxic injury. Plan to continue current supportive measures, with ongoing goals of care discussion with the family. No purposeful movement has been noted, but patient is localizing to painful stimuli at this time 4. Acute kidney injury/acute liver injury/hyperkalemia Likely secondary to acute presentation including respiratory failure due to overdose and ensuing sepsis. As noted above, plan to continue supportive measures. Continue to monitor liver and renal function. Patient likely requires hemodialysis from a BUN and potassium perspective. Given grim neurologic prognosis, will discuss with family prior to consulting nephrology 5. History of heroin dependency Complicates care, management, recovery and prognosis. Continue supportive measures as noted above. Prognosis is overall quite poor. TIME: 40 minutes of critical care time, independent of procedures, was spent addressing the patient's acute combined respiratory failure, septic shock, encephalopathy, acute kidney injury, acute liver injury, review of all data and collaboration with the care team. Subjective Subjective Patient did okay overnight. Patient is no longer on pressors and has developed withdrawal to painful stimuli. Patient continues to breathe over the vent and has a corneal reflex. Family reportedly had refused organ donation yesterday. Patient has persisted in fever. Not following commands or withdrawing to confrontation. Nursing had reported the family was contemplating palliative measures Objective Data Objective Data Vital Signs: Vital Signs Temp Pulse Resp BP Pulse Ox 37.3 C 105 H 22 H 113/65 95 08/17/21 04:00 08/17/21 04:15 08/17/21 04:15 08/17/21 04:00 08/17/21 04:15 Oxygen Delivery Method Mechanical Ventilator Weight: 128.3 kg Body Mass Index (BMI) 36.9 Intake & Output: Intake and Output for Last 24 Hours 08/15/21 08/16/21 08/17/21 23:59 23:59 23:59 Intake Total 3321.25 / 3360.60 5266.80 / 5271.50 1064.1 / 1064.1 Output Total 885 / 885 45 / 70 160 / 160 Balance 2436.25 / 2475.60 5221.80 / 5201.50 904.1 / 904.1 Lab / Micro Data Result Diagrams: 08/17/21 03:50 08/17/21 03:50 Labs: Laboratory Results - last 24 hr 08/16/21 04:45: Absolute Neuts (auto) 18.9 H, Absolute Lymphs (auto) 2.88 08/16/21 20:50: Random Vancomycin > 50.0 H 08/17/21 03:50: WBC 18.8 H, RBC 4.16 L, Hgb 13.6, Hct 39.9 L, MCV 95.9 H, MCH 32.7 H, MCHC 34.1, RDW Std Deviation 47.6 H, RDW Coeff of [place]ph[place] 13.2, Plt Count 114 L, MPV 9.8, Immature Gran % (Auto) 0.400, Neut % (Auto) 88.1 H, Lymph % (Auto) 6.1 L, [place] % (Auto) 5.2, Eos % (Auto) 0.1, Baso % (Auto) 0.1, Absolute Neuts (auto) 16.6 H, Absolute Lymphs (auto) 1.14, Nucleated RBC % 0, Microcytosis 1+ 08/17/21 03:50: Sodium 141, Potassium 6.2 H*, Chloride 111 H, Carbon Dioxide 22.0, Anion Gap 8, BUN 108 H*, Creatinine 10.40 H*, Estim Creat Clear Calc 10.78, Est GFR (MDRD) Af Amer 7 L, Est GFR (MDRD) Non-Af 6 L, BUN/Creatinine Ratio 10.4, Glucose 183 H, Calcium 6.9 L Micro: Microbiology 08/14/21 12:30 Blood Culture (Wb) - Anticubital Right Blood Culture - Preliminary No growth in 48 hours. 08/14/21 08:50 Urine Catheter - Lopez Urine Culture - Final Culture exhibits no growth. 08/14/21 12:00 Sputum, Induced/Lukens Gram Stain - Final Physical Exam Const General Appearance: in distress, ill appearing, intubated and patient mechanically ventilated Nutritional Appearance: obese HEENT normocephalic and head/scalp atraumatic Mouth: endotracheal tube in place and OG tube in place Eyes Eyes Narrative: Slow pupillary reflex noted this morning. Scleral injection noted Neck supple General: trachea midline and CVC in place Chest inspection of chest normal Resp Resp Narrative: The patient continues to over breathe the set rate on the ventilator. Effort and Inspection: tachypneic Auscultation: diminished lung sounds Cardio S1 normal heart sound, S2 normal heart sound, no murmurs, no rub and no gallops Rate: tachycardic GI normal to inspection, nondistended, normoactive bowel sounds Extremity no clubbing, cyanosis or edema Skin no rashes or lesions noted Neuro Neuro Narrative: + gag. The patient now localizes and withdraws to painful stimulation. No purposeful movements noted. Charges/Coding Procedures Hospitalists Procedures: [id number] [facility] Care 1st Hr
[2021-08-17 08:16] LABS: Bedside Glucose 165 mg/dL (74-106)
[2021-08-17] MEDS: Chlorhexidine 15 ML PO (08:58)
[2021-08-17 09:31] LABS: Base Excess -9 mmol/L (-2 to +2); Bicarbonate 17.6 mmol/L (22-26); Blood Gas Specimen Type ART; FI02 30; O2 Delivery Device Adult Vent; PEEP 5; PO2 57 mmHG (75-100); PS 5; SITE Art Line; SO2 87 % (95-99); Total Carbon Dioxide 19 mmol/L; pCO2 35.4 mmHg (35-45)
[2021-08-17 09:53] LABS: Carboxyhemoglobin Frac (CO) 3.3 % (0.0-1.5); Methemoglobin 1.1 % (0.0-1.5); OXYGEN CONTENT OF HEMOGLOBIN 18.6 VOL%O2 (7.5-17.5); OXYHEMOGLOBIN FRACTION 97.5 % (40-90)
--- NOTE | 2021-08-17 12:56 | NURSING ---
Family at bedside, notified Dr. Lema family is here and wanting to discuss POC.
[2021-08-17] MEDS: LORazepam 2 MG/ML Syringe IV ×3 (14:28→20:22)
--- NOTE | 2021-08-17 14:37 | NURSING ---
extubated at 1435 via Annita, respiratory therapist and this RN, oral suctioned, family at bedside.
[2021-08-17] MEDS: Atropine Sulfate 1% 2 ml Bottle 4 DRP PO (14:58)
--- NOTE | 2021-08-17 16:08 | PN.HOSP_ITS ---
Subjective Subjective Patient was seen and examined today, he remains comatose, he is now on CPAP and he is off of all pressor agents. I had a long talk with the patient's family including his mother and his sisters, I went over options in treating the patient, I explained to them that the fact he was not on pressor agents anymore and breathing off the ventilator was not necessarily a sign that he was going to recover. I said that the likelihood of recovery is grim, I answered the questions and they decided that the patient should be extubated and made a comfort care. They understand that the patient is in worse renal failure today. Dialysis was not an option for the patient. Objective Data Objective Data Vital Signs: Vital Signs Temp Pulse Resp BP Pulse Ox 99.0 F 106 H 25 H 123/71 H 85 08/17/21 14:00 08/17/21 14:44 08/17/21 14:00 08/17/21 14:00 08/17/21 14:44 Oxygen Delivery Method Room Air Weight: 128.3 kg Body Mass Index (BMI) 36.9 Intake & Output: Intake and Output for Last 24 Hours 08/15/21 08/16/21 08/17/21 23:59 23:59 23:59 Intake Total 3321.25 / 3360.60 5266.80 / 5271.50 2159.52 / 2159.52 Output Total 885 / 885 45 / 70 220 / 220 Balance 2436.25 / 2475.60 5221.80 / 5201.50 1939.52 / 1939.52 Lab / Micro Data Result Diagrams: 08/17/21 03:50 08/17/21 03:50 Labs: Laboratory Results - last 24 hr 08/16/21 20:50: Random Vancomycin > 50.0 H 08/17/21 03:50: WBC 18.8 H, RBC 4.16 L, Hgb 13.6, Hct 39.9 L, MCV 95.9 H, MCH 32.7 H, MCHC 34.1, RDW Std Deviation 47.6 H, RDW Coeff of Alphonse 13.2, Plt Count 114 L, MPV 9.8, Immature Gran % (Auto) 0.400, Neut % (Auto) 88.1 H, Lymph % (A uto) 6.1 L, [place] % (Auto) 5.2, Eos % (Auto) 0.1, Baso % (Auto) 0.1, Absolute Neuts (auto) 16.6 H, Absolute Lymphs (auto) 1.14, Nucleated RBC % 0, Microcytosis 1+ 08/17/21 03:50: Sodium 141, Potassium 6.2 H*, Chloride 111 H, Carbon Dioxide 22.0, Anion Gap 8, BUN 108 H*, Creatinine 10.40 H*, Estim Creat Clear Calc 10.78, Est GFR (MDRD) Af Amer 7 L, Est GFR (MDRD) Non-Af 6 L, BUN/Creatinine Ratio 10.4, Glucose 183 H, Calcium 6.9 L 08/17/21 08:13: POC Glucose 165 H Micro: Microbiology 08/14/21 12:00 Sputum, Induced/Lukens Gram Stain - Final 08/14/21 12:00 Sputum, Induced/Lukens Respiratory Culture - Final Streptococcus group G 08/15/21 03:30 Blood Culture (Wb) - Central Line Blood Culture - Preliminary No growth in 48 hours. 08/14/21 12:30 Blood Culture (Wb) - Anticubital Right Blood Culture - Preliminary No growth in 48 hours. 08/14/21 08:50 Urine Catheter - Lopez Urine Culture - Final Culture exhibits no growth. ABG Data ABG results: ABG 08/17/21 08/17/21 09:28 09:40 Specimen Type ART Sample Site Art Line pH 7.30 L Bicarbonate Actual 17.6 L Total CO2 19 Base Excess -9 L O2 Saturation 87 L O2 % 30 ABG pCO2 35.4 ABG pO2 57 L VBG O2 Content 18.6 H VBG Oxyhemoglobin 97.5 H VBG Carboxyhemoglobin 3.3 H VBG Methemoglobin 1.1 Hemoglobin 13.7 O2 Delivery Device Adult Vent POC PEEP 5 POC Pressure Suppt 5 Physical Exam Narrative Patient unresponsive and on the ventilator HEENT head/scalp atraumatic Head and Scalp: normocephalic Eyes Eyes Narrative: Pupils are pinpoint and nonreactive, there is some deviation of the right eye laterally Neck no JVD Resp Resp Narrative: Patient is exhibiting rapid shallow respirations Cardio regular rate, regular rhythm, S1 normal heart sound, S2 normal heart sound and no clicks, patient tachycardic GI normal to inspection, nondistended, normoactive bowel sounds Extremity normal to inspection Skin no rashes or lesions noted and no wounds Neuro Neuro Narrative: Patient is comatose on the ventilator at this time, he does not respond to painful stimuli or verbal cues Psych Psych Narrative: Patient is comatose and on the ventilator at this time Assessment & Plan Assessment/Plan (1) Acute respiratory failure: PLAN: 1. Acute combined respiratory failure secondary to suspected unintentional drug overdose-at this time, patient has been extubated and is breathing spontaneously, [place] remains poor. Patient is a comfort care. #2 anoxic brain injury-prognosis poor, patient is now off the vent #3 Cardiac arrest-patient had a short episode of cardiac arrest while in the ER, chest compressions were performed and he got return of pulse. #4 probable drug overdose-exact drug not known at this time, patient remains comatose #5 aspiration pneumonia/pneumonitis with probable ARDS-patient's antibiotics will be stopped, he is a comfort care only #6+ tox screen for amphetamines #7 acute septic shock-patient is currently off of pressor agents #8 acute renal failure-patient's creatinine today was worse than yesterday's, I expect it will continue to worsen. #9 hyperkalemia #10 shock liver-patient's liver functions are all elevated in keeping with shock liver #11 elevated troponin-possible non-STEMI, supportive care will be given at this point, patient is not a candidate for any cardiac work- up at this time #13 multisystem organ failure-dismal prognosis Charges/Coding Visit Charges Inpatient E&M: 15257 Subs Hosp L3
--- NOTE | 2021-08-17 21:44 | NURSING ---
6: Noted absence of heart rhythm on monitor. Mother and sister remain at bedside, assessment verified lack of VS. at bedside. Emotional support provided, family rushed to leave room and hospital. Family given bereavement fingerprint tokens, lap blanket, last rhythm strips and white ani. Per seismograph helper, pt to be transferred to the [facility] for exam and then she will call the home upon completion.
--- NOTE | 2021-08-18 15:41 | PCM.DEATH ---
Preliminary Cause of Preliminary Cause of Preliminary Cause of : Anoxic brain injury and hypoxia secondary to suspected drug overdose Date of Admission: 08/14/21 Date of : 08/17/21 Principle Diagnosis 1. Anoxic brain injury and hypoxia secondary to suspected drug overdose #2 acute combined respiratory failure secondary to anoxic brain injury, ARDS, and aspiration pneumonia as result of suspected drug overdose #3 aspiration pneumonia #4 acute renal failure #5 suspected drug overdose #6 septic shock #7 acute respiratory distress syndrome Problem List: Active and Suspected Problems (Updated 08/14/21 @ 12:57 by Leny Giron) Acute respiratory failure (Acute) Hospital Course This 36-year-old white male was seen in the emergency room at [facility] after being brought in by squad after he was found down at his home, last time he was seen well was several hours prior to this, he was found with agonal respirations at home, ambulance brought the patient to the ER for evaluation here and within a few minutes, attempts were made to intubate the patient for airway protection, while being given medication to facilitate intubation, patient had a violent episode of emesis, he was subsequently intubated and had a brief cardiac arrest, chest compressions were done for only a few minutes and return of spontaneous circulation was noted. Patient's chest x-ray showed bilateral infiltrates indicative of probable aspiration pneumonia with ARDS. Head CT performed showed evidence of anoxic brain injury. Patient was given IV antibiotics and transferred to ICU where he was seen by the intensive care service. For the next several days, patient's status declined markedly and he was finally placed on pressor agents for believed septic shock, patient's kidney function deteriorated, conversation was carried out with the patient's mother who changed the patient's CODE STATUS to DNR CC arrest without intubation. Patient's medical status over the next few days deteriorated further, it was evident he was going into renal failure. Initially patient's mother agreed to have the patient's organs harvested by [employer], just before this was to occur, patient's family changed their mind and wanted continued treatment in the ICU. On 08/17/2021, I had a long conversation with the patient's family at the bedside and told them that the prognosis was grim, they agreed to extubation of the patient and comfort care status. In the evening of 08/17/2021, patient , no spontaneous respirations or blood pressure was noted-time of was 2110. Total time spent on this discharge summary: 31 minutes Visit Charges Inpatient E&M: 61497 Disch Hosp
[2021-08-19 14:03] LABS: Pathologist Review Reviewed
== END 2021-08-17 21:11 | DRG 816 ==
LOC: ED 08:31 → ICU 09:55
PROVIDERS: Internal Medicine Critical Care Medicine; Admitting Provider Internal Medicine; Emergency Provider Student in an Organized Health Care Education/Training Program; Visit Provider Internal Medicine
DX: T65.94XA Toxic effect of unspecified substance, undetermined, initial encounter (principal); I46.9 Cardiac arrest, cause unspecified; J69.0 Pneumonitis due to inhalation of food and vomit; R65.21 Severe sepsis with septic shock; J96.01 Acute respiratory failure with hypoxia; A41.9 Sepsis, unspecified organism; G93.1 Anoxic brain damage, not elsewhere classified; N17.9 Acute kidney failure, unspecified; E87.2 Acidosis; E87.5 Hyperkalemia; F17.210 Nicotine dependence, cigarettes, uncomplicated; Z66 Do not resuscitate; Z51.5 Encounter for palliative care
CPT/HCPCS: 31500; 31720; 36591; 36600; 36620; 51702; 70450; 71045; 74018; 80048; 80053; 80076; 80202; 80307; 81001; 82375; 82550; 82803; 82962; 83605; 84484; 85025; 85610; 85730; 86850; 86900; 86901; 87040; 87070; 87077; 87086; 87205; 87635; 87641; 92950; 93005; 94002; 94003; 99285; J7030; J7040; J7050; J7120; A4216; C1751; J0610; J3010; J3490; U0003; U0005